=== PATIENT | male | born 1975 | race African-American/Black ===

== ENCOUNTER 2018-07-24 13:10 | Emergency (ER) | payer OTHER ==
[~2018-07-24 13:10] MED LIST: ISOVUE-370 76%-LOCM 1 ML ONE
[2018-07-24 13:40] LABS: #Basophils 0.1 thou/uL (0.0-0.2); #Lymphocytes 1.9 thou/uL (1.20-3.40); #Monocytes 0.5 thou/uL (0.11-0.59); #Neutrophils 3.6 thou/uL (1.40-6.50); %Basophils 1.7 % (0.0-1.0); %Eosinophils 0.8 % (0.0-10.0); %Lymphocytes 31.3 % (21.0-51.0); %Monocytes 7.3 % (0.0-10.0); %Neutrophils 58.8 % (42.0-75.0); Hemoglobin 16.2 g/dL (14.0-18.0); Mean Corpuscular HGB CONC 32.3 g/dL (32.0-36.0); Mean Corpuscular Hemoglobin 28.5 pg (27.0-31.0); Mean Corpuscular Volume 88.4 fL (78.0-98.0); Mean Platelet Volume 9.6 fL (7.4-10.4); Platelet Count 178 thou/uL (130-400); RBC Distribution Width 13.1 % (11.5-14.5); Red Blood Cell (RBC) Count 5.68 mill/uL (4.70-6.10); White Blood Cell (WBC) Count 6.1 thou/uL (4.8-10.8)
[2018-07-24 13:52] LABS: PTT 32.5 SEC (22.9-36.1); Prothrombin Time 13.3 SEC (12.0-14.7)
[2018-07-24 14:00] LABS: CKMB 1.1 ng/mL (0-6.6); Troponin I Less than 0.010 ng/mL (< 0.028)
[2018-07-24 14:03] LABS: ALT (SGPT) 14 U/L (8-55); AST (SGOT) 19 U/L (5-34); Acetaminophen Less than 6.0 mcg/mL (10.0-30.0); Albumin 4.4 g/dL (3.5-5.0); Alcohol Less than 10 mg/dL (Less than 10); Alkaline Phosphatase 62 U/L (40-150); Anion Gap 13 mmol/L (10-20); BUN (Urea Nitrogen) 10 mg/dL (8.9-20.6); Bilirubin, Total 0.8 mg/dL (0.2-1.2); Calc. Creatinine Clearance 0 mL/min (70-130); Calcium 9.2 mg/dL (7.8-10.44); Carbon Dioxide 21 mmol/L (22-29); Chloride 106 mmol/L (98-107); Estimated GFR-MDRD 87; Glucose 85 mg/dL (70-105); Potassium 4.3 mmol/L (3.5-5.1); Protein, Total 7.4 g/dL (6.0-8.3); Salicylate Less than 8.0 mg/dL (15.0-30.0); Sodium 136 mmol/L (136-145)
[2018-07-24 14:20] LABS: Bilirubin Negative (Negative); Blood, Urine Negative (Negative); Clarity CLEAR (Clear); Glucose, Urine (Dipstick) Negative (Negative); Leukocyte Negative (Negative); Nitrite Negative (Negative); Protein, Urine (Dipstick) Negative (Neg-Trace); Specific Gravity, Urine 1.035 (1.002-1.036); Urobilinogen 0.2 mg/dL (0.2-1.0); pH, Urine 6.5 (5.0-9.0)
[2018-07-24 14:31] LABS: Amphetamine Detected (NotDetected); Barbiturates Screen Not Detected (NotDetected); Benzodiazepine Screen Not Detected (NotDetected); Cocaine Metabolite Screen Not Detected (NotDetected); Medtox Control Line Valid? VALID (VALID); Medtox Reader # READER 4; Methadone Not Detected (NotDetected); Methamphetamine Detected (NotDetected); Opiate Screen Not Detected (NotDetected); Oxycodone Screen Not Detected (NotDetected); Phencyclidine (PCP) Not Detected (NotDetected); THC/Cannabinoid Screen Detected (NotDetected); Tricyclic Screen Not Detected (NotDetected)
[2018-07-24] MEDS ORDERED: diphenhydrAMINE 12.5 MG/5 ML UDCUP ONE (15:10)
[2018-07-24] MEDS ORDERED: Lorazepam 2 MG/ML VIAL ONE (15:10)
[2018-07-24] MEDS ORDERED: diphenhydrAMINE 50 MG/ML VIAL ONE (15:11)
--- NOTE | 2018-07-24 18:06 | CT ---
CT ANGIOGRAM BRAIN WITH IV CONTRAST AND 3D RECONSTRUCTIONS CT ANGIOGRAM NECK WITH IV CONTRAST AND 3D RECONSTRUCTIONS: DATE: 07/24/18. COMPARISON: Noncontrast CT head on 07/24/18. HISTORY: Altered mental status. FINDINGS: The aortic arch is normal in caliber. There is a common origin of the innominate artery and left com mon carotid artery which his a normal variant. The innominate artery and bilateral common carotid ar teries as well as left subclavian artery are patent. The right subclavian artery is partially obscur ed due to dense contrast in the right subclavian vein. The bilateral common carotid arteries as well as the bilateral internal and external carotid arteries are patent. There is minimal atherosclerotic plaque seen within the proximal left internal carotid artery. There is less than 50% maximal stenosis in the internal carotid arteries bilaterally accordi ng to NASCET criteria. There are patent and codominant bilateral vertebral arteries. The basilar artery is very small in ca liber but is patent. Bilateral posterior cerebral arteries are patent and there are patent bilateral posterior communicating arteries visualized. The distal bilateral internal carotid arteries, bilate ral middle cerebral arteries, as well as anterior cerebral arteries are patent. There is a patent an terior communicating artery visualized. No focal stenosis or branch occlusion is seen. There is tortuosity involving the proximal left internal carotid artery. Degenerative changes are seen in the spine at the C6-7 level with prominent posterior osteophyte form ation present. There is fusion of the C2 and C3 vertebral bodies, likely on a developmental basis. Mucous retention cyst is seen in the right maxillary antrum with mucosal thickening in the left maxil anshu antrum. Defect in the left medial orbital wall is likely developmental in origin versus remote injury. Visualized upper lung zones are clear. Calcified mediastinal lymph nodes are seen. The bilateral submandibular and parotid glands as well as the thyroid gland have a normal CT appearan ce. IMPRESSION: 1. Less than 50% maximal stenosis in the bilateral internal carotid arteries based on NASCET criteri a. 2. Patent bilateral vertebral arteries. 3. No focal stenosis or branch occlusion is seen involving the [place] or vertebrobasilar s ystem, and no aneurysm is identified within the limitations of the technique of this exam. 4. The above findings were discussed with Dr. Nelson in the emergency department on 07/04/18 at 1414 hours. CODE CR POS: [facility]
--- NOTE | 2018-07-24 18:06 | CT ---
NONCONTRAST CT HEAD: DATE: 07/24/18. HISTORY: Altered mental status, stroke alert. COMPARISON: 03/28/16. FINDINGS: There is no evidence of a hemorrhage, acute infarction, mass effect, or midline shift. Ventricular s ystem is normal in size, shape, and position. The maxillary antra are not visualized on this exam, a lthough there does appear to be a small defect in the posterior left medial orbital wall which may be developmental or related to remote injury. There has been no interval change from the prior exam. IMPRESSION: 1. No acute intracranial abnormality is demonstrated. 2. The above findings were discussed with Dr. Nelson in the emergency department on 07/24/18 at 133 6 hours. CODE CR POS: [facility]
== END 2018-07-24 15:46 | disposition home or self-care (01) ==
LOC: ERS 13:10
DX: R29.898 Other symptoms and signs involving the musculoskeletal system (principal); F19.10 Other psychoactive substance abuse, uncomplicated; I10 Essential (primary) hypertension; Z86.73 Personal history of transient ischemic attack (TIA), and cerebral infarction without residual deficits; F31.9 Bipolar disorder, unspecified; F41.9 Anxiety disorder, unspecified; F20.9 Schizophrenia, unspecified; F17.210 Nicotine dependence, cigarettes, uncomplicated; Z79.899 Other long term (current) drug therapy
CPT/HCPCS: 36416; 70450; 70496; 70498; 80053; 80306; 80307; 81003; 82140; 82550; 82553; 84484; 85025; 85610; 85730; 93005; 96374; 96375; J1200; J2060

== ENCOUNTER 2019-02-23 19:03 | Observation (INO) | payer OTHER ==
[2019-02-23] MEDS ORDERED: Aspirin Chewable 81 MG TAB ONE (19:12)
[2019-02-23] MEDS ORDERED: Nitroglycerin 2% Ointment 1 INCH/1 GM Packet ONE (19:12)
[2019-02-23] MEDS ORDERED: Acetaminophen 500 MG TAB ONE (19:12)
[2019-02-23 19:28] LABS: #Lymphocytes 0.5 thou/uL (1.20-3.40); #Monocytes 0.4 thou/uL (0.11-0.59); #Neutrophils 10.5 thou/uL (1.40-6.50); %Basophils 0.4 % (0.0-1.0); %Eosinophils 0.4 % (0.0-10.0); %Lymphocytes 4.4 % (21.0-51.0); %Monocytes 3.8 % (0.0-10.0); %Neutrophils 91.1 % (42.0-75.0); Hemoglobin 14.3 g/dL (14.0-18.0); Mean Corpuscular HGB CONC 31.6 g/dL (32.0-36.0); Mean Corpuscular Hemoglobin 27.6 pg (27.0-31.0); Mean Corpuscular Volume 87.4 fL (78.0-98.0); Mean Platelet Volume 9.1 fL (7.4-10.4); Platelet Count 140 thou/uL (130-400); RBC Distribution Width 12.7 % (11.5-14.5); Red Blood Cell (RBC) Count 5.16 mill/uL (4.70-6.10); White Blood Cell (WBC) Count 11.6 thou/uL (4.8-10.8)
--- NOTE | 2019-02-23 19:30 | RAD ---
Portable frontal chest radiograph: 02/23/2019 COMPARISON: 12/19/2015 HISTORY: Chest pain FINDINGS: Lungs are clear. Heart and mediastinal contours appear within normal limits. IMPRESSION: No acute findings.
[2019-02-23 19:44] LABS: ALT (SGPT) 9 U/L (8-55); AST (SGOT) 13 U/L (5-34); Albumin 4.1 g/dL (3.5-5.0); Alkaline Phosphatase 62 U/L (40-150); Anion Gap 12 mmol/L (10-20); BUN (Urea Nitrogen) 11 mg/dL (8.9-20.6); Bilirubin, Total 0.3 mg/dL (0.2-1.2); CK (CPK) 168 U/L (30-200); Calc. Creatinine Clearance 0 mL/min (70-130); Carbon Dioxide 22 mmol/L (22-29); Chloride 107 mmol/L (98-107); Estimated GFR-MDRD 77; Globulin 2.6 g/dL (2.4-3.5); Glucose 103 mg/dL (70-105); Lipase 15 U/L (8-78); Potassium 3.4 mmol/L (3.5-5.1); Protein, Total 6.7 g/dL (6.0-8.3); Sodium 138 mmol/L (136-145)
--- NOTE | 2019-02-23 20:20 | PDOC.FPRHP ---
- History of Present Illness Chief Complaint: chest pain History of Present Illness: 43 yo M with PMH CAD, HI s/p stent, CVA presents with chest pain. This morning he started "feeling bad" with weakness, lightheaded, diaphoresis, N/V, L sided stabbing chest pain radiating to back. Pain worse laying down. Also endorses difficulty breathing and wheezing. Nitro doesn't help and causes headache. Pain still 9/10. This pain similar to HI pain 5 months ago. He was hospitalized in [place] at that time and stents placed. He moves back and forth between here and [place]. No PCP. Gets medications from hospitals. Has been out of HCTZ, carvedilol, Plavix for months. ED Course: tylenol, nitro 1" paste, 1L, ASA - Allergies/Adverse Reactions Allergies Allergy/AdvReac Type Severity Reaction Status Date / Time No Known Allergies Allergy Verified 02/24/19 01:01 - Home Medications Medication Instructions Recorded Confirmed Type Aspirin [Ecotrin Low Strength] 81 mg PO DAILY 02/24/19 02/24/19 History Clopidogrel Bisulfate [Plavix] 75 mg PO BID 02/24/19 02/24/19 History Hydrochlorothiazide 12.5 mg PO BID 02/24/19 02/24/19 History cloNIDine [Catapres] 0.2 mg PO HS 02/24/19 02/24/19 History levETIRAcetam [Keppra] 250 mg PO BID 02/24/19 02/24/19 History - History PMHx: CAD with HI s/p stent 5 months ago, CVA 2016 without residual deficits, bipolar, schizoprenia, asthma, seizures PSHx: stents FHx: dad-stroke, HI, HLD, DM. mom-stroke Social: Current smoker, 23 pack years. Denies alcohol or drug use. - Review of Systems General: denies: fever/chills Eyes: denies: vision changes ENT: denies: nasal congestion Respiratory: reports: shortness of breath. denies: cough Cardiovascular: reports: chest pain. denies: palpitation, edema Gastrointestinal: reports: nausea, vomiting. denies: diarrhea, abdominal pain Genitourinary: denies: dysuria Skin: denies: rashes Musculoskeletal: denies: pain, swelling Neurological: reports: weakness. denies: numbness, seizure Psychological: reports: other (bipolar, schizophrenia) - Vital signs BP: 136/81, Pulse: 73, Resp: 18, Pain: 7, O2 sat: 96 on Room Air, T 98.7, Weight 98.7 - Physical Exam Constitutional: NAD HEENT: normocephalic and atraumatic, PERRLA, grossly normal vision, grossly normal hearing, MMM, oropharynx clear Neck: supple Heart: RRR, normal S1/S2, no murmurs/rubs/gallops, pulses present, no edema Lungs: other (expiratory wheeze) Abdomen: soft, non-tender, bowel sounds present Musculoskeletal: normal structure, normal tone Neurological: no focal deficit Skin: good turgor, capillary refill <2 seconds Heme/Lymphatic: no unusual bruising or bleeding Psychiatric: normal mood and affect FMR H&P: Results - Labs Result Diagrams: 02/23/19 19:19 02/23/19 19:17 Lab results: WBC 11.6 thou/uL (4.8-10.8) H 02/23/19 19:19 Hgb 14.3 g/dL (14.0-18.0) 02/23/19 19:19 Hct 45.1 % (42.0-52.0) 02/23/19 19:19 MCV 87.4 fL (78.0-98.0) 02/23/19 19:19 Plt Count 140 thou/uL (130-400) 02/23/19 19:19 Neutrophils % 91.1 % (42.0-75.0) H 02/23/19 19:19 Sodium 138 mmol/L (136-145) 02/23/19 19:17 Potassium 3.4 mmol/L (3.5-5.1) L 02/23/19 19:17 Chloride 107 mmol/L (98-107) 02/23/19 19:17 Carbon Dioxide 22 mmol/L (22-29) 02/23/19 19:17 BUN 11 mg/dL (8.9-20.6) 02/23/19 19:17 Creatinine 1.25 mg/dL (0.7-1.3) 02/23/19 19:17 Glucose 103 mg/dL (70-105) 02/23/19 19:17 Calcium 9.0 mg/dL (7.8-10.44) 02/23/19 19:17 Total Bilirubin 0.3 mg/dL (0.2-1.2) 02/23/19 19:17 AST 13 U/L (5-34) 02/23/19 19:17 ALT 9 U/L (8-55) 02/23/19 19:17 Alkaline Phosphatase 62 U/L (40-150) 02/23/19 19:17 Creatine Kinase 168 U/L (30-200) 02/23/19 19:17 B-Natriuretic Peptide 17.2 pg/mL (0-100) 02/23/19 19:17 Serum Total Protein 6.7 g/dL (6.0-8.3) 02/23/19 19:17 Albumin 4.1 g/dL (3.5-5.0) 02/23/19 19:17 Lipase 15 U/L (8-78) 02/23/19 19:17 FMR H&P: A/P - Plan Typical chest pain, ACS rule out - Heart score 5 - trop neg x1, continue to trend - EKG with t wave inversions - will request records from [place] and discuss case with cardiology in am - pending TSH, UDS CAD with HI s/p stent 5 months ago and history of CVA - continue home ASA 81 - out of plavix for months - not on statin, FLP pending HTN - restart home HCTZ - patient reported carvedilol rx but clonidine in med rec. Will monitor BP and decide need for second agent Seizure disorder - continue keppra, patient has been taking regularly Asthma - albuterol prn Bipolar and schizoprenia - does not take meds d/t sedation side effect Tobacco abuse - probation counselor cessation Diet: NPO after midnight Ppx: Lovenox Dispo: admit to telemetry for observation, expected stay <2 midnights PCP: none Case discussed with Dr. Alcocer FMR H&P: Upper Level - Pertinent history 43 yo AAM with known history of CAD with recent stent placement 5 months ago in [place] presents with L sided stabbing chest pain since 8 am this morning. Pain not associated with exertion but does not he feels worse when he lays down. Also associated with n/v and diaphoresis. - Pertinent findings VS, labs, imaging and EKG reviewed Gen: awake, alert, oriented, appears uncomfortable HEENT: NCAT, MMM, trachea midline, no JVD CV: RRR, no murmur noted, chest pain not reproducible RESP: Scattered expiratory wheezing ABD: soft, NTND, bowel sounds present EXT: no edema, pulses 2+ throughout - Plan Date/Time: 02/23/192018 43 yo AAM with known CAD presents with typical chest pain 1. Typical chest pain - HEART score 5 - No relief with nitro but accompanied by n/v/diaphoresis and similar pain to when he had HI - EKG with inferolateral t wave inversion but unknown baseline with recent h/o HI - trop neg x1, will trend - monitor on tele - FLP, TSH, UDS - likely needs moderate intensity statin - Cardiology consult in a.m. - will hold off on stress in setting of recent HI, stent placement and unknown acuity of t wave inversion 2. CAD with recent stent placement, h/o stroke - Has been out of Plavix for "a while" - Continue ASA, d/w cardiology indication for duration of Plavix - Unknown stent type, will request records 3. HTN - Home meds, hold B-moiz in case of possible stress tomorrow 4. Bipolar d/o, Schizophrenia - Does not take meds because they sedate him 5. Tobacco abuse - Counseled cessation, precontemplative Please see Dr. Ruiz's note for remainder of A/P I, Mirian Soto MD, PGY-3, have evaluated this patient and agree with findings/ plan as outlined by general internist and physician leader resident. Pertinent changes/additions are listed here.
[2019-02-23] MEDS ORDERED: Acetaminophen 325 MG TAB PO PRN (22:12)
[2019-02-23] MEDS ORDERED: Ondansetron PF 4 MG/2 ML Vial IVP PRN (22:15)
[2019-02-23] MEDS ORDERED: Nitroglycerin 0.4 MG TAB (25 Tab Bottle) PO PRN (22:19)
[2019-02-23 22:55] LABS: Troponin I Less than 0.010 ng/mL (< 0.028)
[2019-02-23] MEDS ORDERED: Morphine 4 MG/ML VIAL ONE (22:55)
[2019-02-23] MEDS ORDERED: Nicotine 14 MG PATCH TD SCH (23:00)
[2019-02-23] MEDS ORDERED: Enoxaparin Sodium 40 MG/0.4 ML SYRINGE SC SCH (23:00)
--- NOTE | 2019-02-23 23:22 | PDOC.EVN ---
Event Note - Event Note Event Note: Date/Time: 02/23/19 7689 I personally evaluated the patient and discussed the management with Dr. Ruiz I agree with the History, Examination, Assessment and Plan documented above with any addition or exceptions noted below - 43 yo male with h/o CAD s/p stent 11/2018 in [place], HTN, CVA, seizures, and asthma presented c/o chest pain on left sided. Described as stabbing with associated SOB. No diaphoresis, N/V. Ran out of his clopidigrel and BP meds several months ago. PMH/PSH/All/Meds/SH reviewed and agree with resident 's documentation. BP 136/81 P73 RR18 T98.7 96% RA Exam repeated by me and agree with resident's findings. Labs: WBC=11.6, H /H=14.3/45.1, Xyt=023, Dq=660, K=3.4, Hq=048, CO2=22, BUN/Cr=11/1.25, Ocij=530, AST/ALT=13/9, Trop I=0.011, EKG- NSR, Inferolateral T wave inversions; no ST changes, CXR-negative. A/P: 1) Chest pain - Place in obs; trend serial cardiac enzymes. Patient with multiple risk factors including recent stent placement- consider cardiology consult in AM. Plan to pbtain records from [place] if patient able to recall hospital where procedure was done. 2) Seizure - continue keppra, 3) HTN- continue to monitor and syart oral agents if needed.
[2019-02-24 01:08] VITALS: BMI 27.2
[2019-02-24 01:56] LABS: Troponin I Less than 0.010 ng/mL (< 0.028)
[2019-02-24 06:16] LABS: Anion Gap 13 mmol/L (10-20); BUN (Urea Nitrogen) 9 mg/dL (8.9-20.6); Calc. Creatinine Clearance 89 mL/min (70-130); Calcium 8.5 mg/dL (7.8-10.44); Carbon Dioxide 22 mmol/L (22-29); Chloride 109 mmol/L (98-107); Estimated GFR-MDRD 88; Glucose 86 mg/dL (70-105); Potassium 3.5 mmol/L (3.5-5.1); Sodium 140 mmol/L (136-145)
--- NOTE | 2019-02-24 06:52 | PDOC.FM ---
- Subjective Subjective: Chest pain still present, unchanged. Tele monitors unremarkable except for ST depressions present on admission. Pt endorses pain is worse with laying down, better with sitting up, worse with inspiration. - Objective MAR Reviewed: Yes Vital Signs & Weight: Vital Signs (12 hours) Temp Pulse Resp BP Pulse Ox 02/24/19 04:06 99.0 F 73 13 148/82 H 97 02/24/19 01:07 98.4 F 70 17 138/83 98 Weight Weight 72.03 kg I&O: 02/22/19 02/23/19 02/24/19 06:59 06:59 06:59 Intake Total 0 Output Total 0 Balance 0 Result Diagrams: 02/23/19 19:19 02/24/19 04:58 Phys Exam - Physical Examination Constitutional: NAD HEENT: PERRLA, moist MMs Respiratory: no wheezing, clear to auscultation bilateral Cardiovascular: RRR, no significant murmur Gastrointestinal: soft, non-tender Musculoskeletal: no edema Neurological: non-focal, moves all 4 limbs Dx/Plan (1) Atypical chest pain Code(s): R07.89 - OTHER CHEST PAIN Status: Acute (2) Hypertension Code(s): I10 - ESSENTIAL (PRIMARY) HYPERTENSION Status: Acute (3) Dyslipidemia Code(s): E78.5 - HYPERLIPIDEMIA, UNSPECIFIED Status: Acute (4) Tobacco abuse Code(s): Z72.0 - TOBACCO USE Status: Acute - Plan Plan: 43 yo M with recent OR with coronary stent placement 5 mos ago admitted for typical chest pain, ACS rule out. #Typical chest pain - HEART score 5 - EKG with inferolateral t wave inversions and ST depressions but unknown baseline with recent h/o OR - trop neg x3 - Nitro paste didn't help - UDS pending - Based on clinical exam, suspicion for pericarditis. Ordered ESR/CRP, will try one time dose of toradol - Will start on high intensity statin - Will consult cardiology in regards to duration of plavix, whether to undergo NST/cath with recent hx of stent placement 5 mos ago #CAD with recent stent placement, h/o stroke - Has been out of Plavix for "a while" - Continue ASA, consult cardiology in regards for duration of Plavix - Unknown stent type, records requested #HTN - Home meds, hold B-moiz in case of possible stress tomorrow # Bipolar d/o, Schizophrenia - Does not take meds because they sedate him - Stable, f/u outpt # Tobacco abuse - Counseled cessation, precontemplative stage #Seizure disorder -continue home keppra #Asthma -continue home meds dvt ppx: lovenox
[2019-02-24] MEDS: Ondansetron ODT 4 MG TAB PO PRN ×2 (07:51→12:45)
[2019-02-24] MEDS ORDERED: Albuterol Sulfate 2.5 mg/3 ml Neb NEB PRN (08:38)
[2019-02-24] MEDS ORDERED: Iopamidol 370 76% 100 ML VIAL ONE (08:40)
[2019-02-24] MEDS ORDERED: Ketorolac Tromethamine 30 MG/ML VIAL IVP SCH (08:45)
[2019-02-24] MEDS ORDERED: Hydrochlorothiazide 25 MG TAB PO SCH (09:00)
[2019-02-24] MEDS ORDERED: levETIRAcetam 500 MG TAB PO SCH (09:00)
[2019-02-24] MEDS ORDERED: Aspirin 81 mg Enteric Coated Tablet PO SCH (09:00)
[2019-02-24] MEDS ORDERED: Aspirin 325 MG TAB PO SCH (09:00)
[2019-02-24 09:06] LABS: #Eosinphils 0.2 thou/uL (0.0-0.7); #Lymphocytes 0.9 thou/uL (1.20-3.40); #Monocytes 0.6 thou/uL (0.11-0.59); #Neutrophils 4.5 thou/uL (1.40-6.50); %Basophils 0.5 % (0.0-1.0); %Eosinophils 3.1 % (0.0-10.0); %Lymphocytes 14.5 % (21.0-51.0); %Monocytes 9.6 % (0.0-10.0); %Neutrophils 72.4 % (42.0-75.0); Hemoglobin 13.4 g/dL (14.0-18.0); Mean Corpuscular HGB CONC 31.5 g/dL (32.0-36.0); Mean Corpuscular Hemoglobin 27.7 pg (27.0-31.0); Mean Platelet Volume 9.1 fL (7.4-10.4); Platelet Count 143 thou/uL (130-400); RBC Distribution Width 12.8 % (11.5-14.5); Red Blood Cell (RBC) Count 4.83 mill/uL (4.70-6.10); White Blood Cell (WBC) Count 6.2 thou/uL (4.8-10.8)
[2019-02-24] MEDS ORDERED: Heparin 10,000 UNITS/1 ML VIAL ONE (10:08)
[2019-02-24] MEDS ORDERED: Nitroglycerin 100MG/250ML BOT 250 ML ONE (10:09)
[2019-02-24 10:14] LABS: Amphetamine Not Detected (NotDetected); Barbiturates Screen Not Detected (NotDetected); Benzodiazepine Screen Not Detected (NotDetected); Cocaine Metabolite Screen Not Detected (NotDetected); Medtox Control Line Valid? VALID (VALID); Medtox Reader # READER 4; Methadone Not Detected (NotDetected); Methamphetamine Not Detected (NotDetected); Opiate Screen Detected (NotDetected); Oxycodone Screen Not Detected (NotDetected); Phencyclidine (PCP) Not Detected (NotDetected); THC/Cannabinoid Screen Detected (NotDetected); Tricyclic Screen Not Detected (NotDetected)
[2019-02-24] MEDS ORDERED: Communication Order-Pharmacy FS SCH (10:15)
[2019-02-24] MEDS ORDERED: Midazolam HCl 2 mg/2 ml Vial ONE (11:41)
[2019-02-24] MEDS ORDERED: Sodium Chloride 0.9% 200 ML IV PRN (11:57)
[2019-02-24] MEDS ORDERED: Nitroglycerin 0.4 MG TAB (25 Tab Bottle) SL PRN (11:57)
[2019-02-24] MEDS ORDERED: Acetaminophen/Codeine 30-300mg Tablet PO PRN ×2 (11:57)
--- NOTE | 2019-02-24 13:24 | PRG ---
DATE OF SERVICE: 02/24/2019 Mr. Santana is a 43-year-old black man, who had a stent placed for coronary artery disease several months ago in [place]. He presented to our ER with some left-sided stabbing-type chest pain. He had quit taking his hydrochlorothiazide, Coreg, and Plavix several months ago. In the event, we consulted Cardiology given his chest pain in the presence of prior history of CAD with stenting. They recommended cardiac catheterization. He will be taken for this procedure forthwith. On his labs, troponins x2 were less than 0.01. Job ID: [id number]
--- NOTE | 2019-02-24 13:28 | CON ---
DATE OF CONSULTATION: HISTORY OF PRESENT ILLNESS: The patient is a 43-year-old gentleman with a history of coronary artery disease, who presents with recurrent chest discomfort and diaphoresis. The patient states that about a year and a half ago, he presented with a myocardial infarction. He underwent PTCA and stent placement. The patient unfortunately has not come for further followup. The patient unfortunately has continued to smoke. He was in his usual state of health. When yesterday, he developed recurrent chest discomfort. He became markedly diaphoretic. The patient describes the discomfort as left sided. It does not radiate. PAST MEDICAL HISTORY: 1. Coronary artery disease. 2. CVA. 3. Bipolar disorder. 4. Hypertension. 5. Seizures. PAST SURGICAL HISTORY: None. MEDICATIONS: Include; 1. Keppra 250 b.i.d. 2. Clonidine 0.2 at bedtime. 3. Hydrochlorothiazide 12.5 b.i.d. 4. Aspirin 81 daily. 5. Plavix 75 daily. REVIEW OF SYSTEMS: Ten-point system, otherwise unremarkable. SOCIAL HISTORY: He smokes 1-1/2 pack per day. ALLERGIES: NO KNOWN DRUG ALLERGIES. PHYSICAL EXAMINATION: GENERAL: This is a well-developed gentleman, in no acute distress. VITAL SIGNS: Blood pressure 159/81. NECK: No jugular venous distention. LUNGS: Clear to auscultation. HEART: Regular rate and rhythm. Normal S1 and S2. No murmurs. ABDOMEN: Nondistended. EXTREMITIES: Show no edema. VASCULAR: Radial pulses are 2+. LABORATORY DATA: Sodium 140, potassium 3.5, chloride 109, bicarbonate 22, BUN 13, and creatinine was 1.1. Troponin less than 0.01. White blood cell count 6.2, hemoglobin 13.4, hematocrit 42.5, and platelets are 143. IMAGING DATA: His EKG revealed normal sinus rhythm with a T-wave abnormality suggestive of ischemia. IMPRESSION: 1. Unstable angina. 2. History of percutaneous transluminal coronary angioplasty and stent placement. 3. History of cerebrovascular accident. 4. Bipolar disorder. 5. Seizure disorder. 6. Asthma. PLAN: This gentleman presents with unstable angina. From a cardiac standpoint , I have recommended that he proceed with cardiac catheterization to evaluate the extent of his coronary artery disease . The life threatening consequences of his continued noncompliance as well as use of tobacco abuse have been explained to the patient.I plan to proceed with cardiac catheterization. Job ID: [id number] MTDD
[2019-02-24 16:01] VITALS: BP 176/98; TEMP 98.6
[2019-02-24] MEDS ORDERED: cloNIDine 0.2 MG TAB PO SCH (21:00)
[2019-02-24] MEDS ORDERED: Atorvastatin Calcium 40 MG TAB PO SCH (21:00)
--- NOTE | 2019-02-27 11:53 | DIS ---
DATE OF ADMISSION: 02/23/2019 DATE OF DISCHARGE: 02/24/2019 ADMITTING ATTENDING: Winnie Alcocer MD. DISCHARGE ATTENDING: Corey Gr MD CONSULTS: Dr. Pryor, Cardiology. PROCEDURES: Cardiac catheterization: Report is pending. However, Dr. Pryor said cardiac cath was clean with no visualization of stent. IMAGING DATA: Chest x-ray, no acute findings. PRIMARY DIAGNOSIS: Atypical chest pain, likely noncardiac related, unknown etiology, but most likely musculoskeletal. SECONDARY DIAGNOSES: 1. History of bipolar disorder. 2. Schizophrenia. 3. Asthma. 4. Reported history of myocardial infarction, status post stent placement. 5. Seizures. 6. Hypertension. 7. History of cerebrovascular accident. DISCHARGE MEDICATIONS: 1. Clonidine 0.2 mg p.o. at bedtime. 2. Plavix 75 mg p.o. b.i.d. 3. Keppra 250 mg p.o. b.i.d. 4. Hydrochlorothiazide 12.5 mg p.o. b.i.d. 5. Aspirin 81 mg p.o. daily. 6. Atorvastatin 40 mg p.o. at bedtime. DISCONTINUED MEDICATIONS: None. HISTORY OF PRESENT ILLNESS/HOSPITAL COURSE: Mr. Santana is a 43-year-old male with past medical history of CAD, GA, status post stent x1, and CVA, who presented with atypical chest pain. He had not been taking plavix nor his antihypertensive medications. With a HEART score >4 and chest pain that felt similar to his last GA, he was admitted for ACS rule out. In the ED, he was hemodynamically stable aside but had chest pain which was not relieved with nitroglycerin paste nor sublingual nitroglycerin. Cardiac workup wholly negative including normal chest x-ray and cardiac enzymes. EKG did show some inferolateral T-wave inversions and ST depressions; however, we had no prior EKGs to compare this to, as these may have been chronic findings due to his recent of GA. Cardiology was consulted and he underwent cardiac catheterization. Surprisingly , there was no visualization of stent. It was discovered that after receiving outside records, there was no mention of stent placement. It is unsure whether or not the patient actually had stent placed despite the fact he reported it. It could be that he has been on the Plavix and aspirin due to his history of CVA. Otherwise, the patient is a poor historian and unsure whether or not his story is quite reliable. By the time the patient was discharged, chest pain had resolved. He was sent home with instructions to follow up and establish care with our clinic. DISPOSITION: Stable. DISCHARGE INSTRUCTIONS: 1. Location: Home. 2. Diet: Heart healthy. 3. Activity: As tolerated. 4. Followup: Please follow up at [facility] to establish care. We are very happy to see you. Job ID: [id number] [facility]ma
== END 2019-02-24 17:52 | disposition home or self-care (01) ==
LOC: ERS 19:03 → ERHOLD 19:56 → 2SW 02-24 00:59
PROVIDERS: ADMIT Family Medicine; ATTEND Family Medicine
PROC: 4A023N7 Measurement of Cardiac Sampling and Pressure, Left Heart, Percutaneous Approach (ICD-10-PCS; principal; 2019-02-24)
PROC: B2111ZZ Fluoroscopy of Multiple Coronary Arteries using Low Osmolar Contrast (ICD-10-PCS; 2019-02-24)
DX: R07.89 Other chest pain (principal); I25.10 Atherosclerotic heart disease of native coronary artery without angina pectoris; I10 Essential (primary) hypertension; I25.2 Old myocardial infarction; F20.9 Schizophrenia, unspecified; F31.9 Bipolar disorder, unspecified; J45.909 Unspecified asthma, uncomplicated; F17.210 Nicotine dependence, cigarettes, uncomplicated; G40.909 Epilepsy, unspecified, not intractable, without status epilepticus; Z95.5 Presence of coronary angioplasty implant and graft; Z86.73 Personal history of transient ischemic attack (TIA), and cerebral infarction without residual deficits; Z79.02 Long term (current) use of antithrombotics/antiplatelets; Z79.82 Long term (current) use of aspirin; Z79.899 Other long term (current) drug therapy
CPT/HCPCS: 36415; 71045; 80048; 80053; 80061; 80306; 82550; 83690; 83880; 84443; 84484; 85025; 85379; 85652; 86140; 93005; 93458; 94760; 96361; 96372; 96374; 96375; 99152; C1769; G0378; J1644; J1650; J1885; J2250; J2270; Q0162; Q9967

== ENCOUNTER 2019-04-24 11:02 | Observation (INO) | payer OTHER ==
[2019-04-24 11:30] LABS: #Basophils 0.1 thou/uL (0.0-0.2); #Eosinphils 0.1 thou/uL (0.0-0.7); #Lymphocytes 1.5 thou/uL (1.20-3.40); #Monocytes 0.4 thou/uL (0.11-0.59); #Neutrophils 3.5 thou/uL (1.40-6.50); %Basophils 1.6 % (0.0-1.0); %Eosinophils 1.1 % (0.0-10.0); %Lymphocytes 26.5 % (21.0-51.0); %Monocytes 6.8 % (0.0-10.0); Hemoglobin 14.7 g/dL (14.0-18.0); Mean Corpuscular HGB CONC 31.9 g/dL (32.0-36.0); Mean Corpuscular Volume 87.7 fL (78.0-98.0); Mean Platelet Volume 8.8 fL (7.4-10.4); Platelet Count 165 thou/uL (130-400); RBC Distribution Width 13.1 % (11.5-14.5); Red Blood Cell (RBC) Count 5.25 mill/uL (4.70-6.10); White Blood Cell (WBC) Count 5.5 thou/uL (4.8-10.8)
--- NOTE | 2019-04-24 11:42 | RAD ---
EXAM: CHEST ONE VIEW HISTORY: Chest pain with elevated blood pressure. COMPARISON: 02/23/2019 FINDINGS: The cardiac silhouette and pulmonary vasculature is within normal limits. The lungs are clear. The os seous structures are intact. No interval change. IMPRESSION: No acute cardiopulmonary process.
[2019-04-24 11:54] LABS: ALT (SGPT) 14 U/L (8-55); AST (SGOT) 19 U/L (5-34); Albumin 4.4 g/dL (3.5-5.0); Alkaline Phosphatase 57 U/L (40-150); Anion Gap 14 mmol/L (10-20); BUN (Urea Nitrogen) 9 mg/dL (8.9-20.6); Bilirubin, Total 0.5 mg/dL (0.2-1.2); Calc. Creatinine Clearance 0 mL/min (70-130); Calcium 9.2 mg/dL (7.8-10.44); Carbon Dioxide 22 mmol/L (22-29); Chloride 108 mmol/L (98-107); Estimated GFR-MDRD 81; Globulin 2.7 g/dL (2.4-3.5); Glucose 93 mg/dL (70-105); Protein, Total 7.1 g/dL (6.0-8.3); Sodium 140 mmol/L (136-145)
[2019-04-24] MEDS ORDERED: Nitroglycerin 2% Ointment 1 INCH/1 GM Packet ONE (12:32)
[2019-04-24] MEDS ORDERED: Aspirin Chewable 81 MG TAB ONE (12:32)
[2019-04-24] MEDS ORDERED: Acetaminophen 325 MG TAB PO PRN (13:44)
[2019-04-24] MEDS ORDERED: Ondansetron PF 4 MG/2 ML Vial IVP PRN (13:44)
[2019-04-24] MEDS ORDERED: Ondansetron ODT 4 MG TAB PO PRN (13:44)
[2019-04-24] MEDS ORDERED: hydrALAZINE 20 MG/ML VIAL SLOW IVP PRN (14:17)
[2019-04-24 14:31] LABS: Troponin I Less than 0.010 ng/mL (< 0.028)
[2019-04-24 15:00] LABS: Bilirubin Negative (Negative); Blood, Urine Negative (Negative); Clarity CLOUDY (Clear); Glucose, Urine (Dipstick) Negative (Negative); Leukocyte Small (Negative); Nitrite Negative (Negative); Protein, Urine (Dipstick) Negative (Neg-Trace); Specific Gravity, Urine 1.021 (1.002-1.036)
[2019-04-24 15:02] LABS: Bacteria/HPF None Seen HPF (None Seen); Hyaline Casts/LPF 7-10 HYALINE CAST LPF (0-3 Hyaline); RBC/HPF 0-3 HPF (0-3)
[2019-04-24 15:10] VITALS: BMI 25.4
[2019-04-24 16:01] LABS: Amphetamine Not Detected (NotDetected); Barbiturates Screen Not Detected (NotDetected); Benzodiazepine Screen Not Detected (NotDetected); Cocaine Metabolite Screen Not Detected (NotDetected); Medtox Control Line Valid? VALID (VALID); Medtox Reader # READER 4; Methadone Not Detected (NotDetected); Methamphetamine Not Detected (NotDetected); Opiate Screen Not Detected (NotDetected); Oxycodone Screen Not Detected (NotDetected); Phencyclidine (PCP) Not Detected (NotDetected); THC/Cannabinoid Screen Detected (NotDetected); Tricyclic Screen Not Detected (NotDetected)
[2019-04-24 18:05] LABS: Troponin I 0.013 ng/mL (< 0.028)
--- NOTE | 2019-04-24 20:09 | HP ---
PRIMARY CARE PHYSICIAN: None. CHIEF COMPLAINT: Chest pain. HISTORY OF PRESENT ILLNESS: Mr. Santana is a 43-year-old male with a past medical history of coronary artery disease, hypertension, bipolar disorder, schizophrenia, asthma, and seizures, who had presented to [facility] earlier today after he experienced left-sided chest pain and shortness of breath, lightheadedness and diaphoresis since yesterday. He states that the pain is improved today. However, he had been worried about his heart. Therefore, he had been wanting to get checked out to rule out any heart attack. He states symptoms similar to what he experienced roughly 2 months ago, the patient was admitted under observation for chest pain rule out back in January of 2019, during the hospital course serial troponins were found to be negative and he underwent a cardiac catheterization with Dr. Pryor, which was found to be normal and he was noted to have patent coronary arteries, he then was later discharged with a diagnosis of noncardiac chest pain and was told to follow up with a PCP. However, the patient states that he was not able to follow up at that time, he states over the last 2 months that the pain resolved, however, seemed to return yesterday after he had a family argument. He had been noted to have an elevated blood pressure upon arrival, which had improved with the use of nitroglycerin. Currently, he is asymptomatic, but with a blood pressure of 159/110, pulse 66, respirations 16, temperature 98.4, and O2 saturation 100% on room air. His EKG remains unchanged from prior, and his initial troponin was found to be less than 0.010. It was at that time, the patient be admitted under observation for further workup and management of his symptoms. REVIEW OF SYSTEMS: All other systems reviewed and found to be negative unless mentioned in the HPI. PAST MEDICAL HISTORY: Coronary artery disease, CVA in 2017 without residual deficits, bipolar disorder, schizophrenia, asthma, and seizure disorder. PAST SURGICAL HISTORY: Cardiac catheterization. PSYCHIATRIC HISTORY: History of bipolar and schizophrenia along with seizure disorder. SOCIAL HISTORY: The patient reports is a current tobacco smoker, which he smokes about a half pack per day and he states that he has an occasional use of marijuana, however, denies any alcohol use. ALLERGIES: NO KNOWN DRUG ALLERGIES. CURRENT HOME MEDICATIONS: 1. Aspirin 81 mg daily. 2. Clopidogrel 75 mg p.o. b.i.d. 3. Hydrochlorothiazide 12.5 mg p.o. b.i.d. 4. Clonidine 0.2 mg p.o. at bedtime. 5. Keppra 250 mg p.o. b.i.d. PHYSICAL EXAMINATION: VITAL SIGNS: Blood pressure 159/110, pulse 66, respirations 16, temperature 98.4 degrees Fahrenheit, and O2 saturations 100% on room air. GENERAL: The patient is awake, alert, and oriented x3. He is currently lying comfortably in bed with his family at bedside and appears in no acute distress at this time. HEENT: Atraumatic and normocephalic. Pupils are round and reactive to light. Extraocular muscles intact. Moist mucous membranes noted. CARDIOVASCULAR: Positive S1 and S2. Regular rate and rhythm. No murmur auscultated. RESPIRATORY: Clear to auscultation bilaterally. No wheezes, rales, or rhonchi. ABDOMEN: Soft and nontender. Bowel sounds present. MUSCULOSKELETAL: Strength 5+ bilaterally, upper and lower extremities. Moves all extremities equal. Pedal and radial pulses 2+ bilaterally. No edema noted. NEUROLOGIC: Cranial nerves 2 through 12 grossly intact. No focal deficits noted. Speech intact and normal. Gait not assessed. SKIN: Warm, dry, and intact. No rashes. No ulceration noted. PSYCHIATRIC: Good mood and affect. LABORATORY DATA: WBC 5.5, RBC 5.25, hemoglobin 14.7, and platelet 165. Sodium 140, potassium 4.0, carbon dioxide 22, anion gap 14, BUN 9, creatinine 1.20, estimated GFR 81, glucose 93, AST 19, and ALT 14. Troponin less than 0.010. DIAGNOSTIC IMAGING: Portable chest x-ray showed no acute cardiopulmonary process. ASSESSMENT/PLAN: 1. Chest pain, the patient's portable chest x-ray was unremarkable and his first initial troponin was found to be less than 0.010. Trend troponins. The patient had a normal heart catheterization [address] Pryor. EKG remains unchanged. The patient remains asymptomatic at this time. 2. Hypertension. The patient will be resumed on his home regimen, we will add p.r.n. antihypertensives including IV hydralazine as needed for an elevated blood pressure with systolic greater than 170 or diastolic greater than 100. 3. Symptomatic shortness of breath. The patient currently asymptomatic at this time. However, due to his other complaint of chest pain, we will obtain a D-dimer to rule out pulmonary embolism and especially with his current history of tobacco and marijuana use. 4. History of bipolar disorder. 5. History of seizure disorder. Continue home Keppra. 6. Tobacco abuse. 7. Marijuana use. We will obtain urine drug screen for further evaluation, and it was strongly recommended that the patient follows smoking cessation. 8. Deep venous thrombosis and gastrointestinal prophylaxis. CODE STATUS: Full code. DISPOSITION: Pending further workup and clinical findings. Job ID: [id number]
[2019-04-24] MEDS: Famotidine 20 MG TAB PO SCH (20:15)
[2019-04-24] MEDS: levETIRAcetam 500 MG TAB PO SCH (20:15)
[2019-04-24] MEDS: Clopidogrel Bisulfate 75 MG TAB PO SCH (20:15)
[2019-04-24] MEDS ORDERED: Atorvastatin Calcium 40 MG TAB PO SCH (21:00)
[2019-04-24] MEDS ORDERED: cloNIDine 0.2 MG TAB PO SCH (21:00)
[2019-04-24] MEDS ORDERED: Nicotine 14 MG PATCH TD SCH (21:00)
[2019-04-25 05:30] LABS: #Basophils 0.1 thou/uL (0.0-0.2); #Eosinphils 0.1 thou/uL (0.0-0.7); #Lymphocytes 1.9 thou/uL (1.20-3.40); #Monocytes 0.3 thou/uL (0.11-0.59); #Neutrophils 3.3 thou/uL (1.40-6.50); %Basophils 1.1 % (0.0-1.0); %Eosinophils 1.7 % (0.0-10.0); %Lymphocytes 33.3 % (21.0-51.0); %Monocytes 5.6 % (0.0-10.0); %Neutrophils 58.4 % (42.0-75.0); Hemoglobin 13.7 g/dL (14.0-18.0); Mean Corpuscular HGB CONC 31.8 g/dL (32.0-36.0); Mean Corpuscular Hemoglobin 28.3 pg (27.0-31.0); Mean Corpuscular Volume 88.9 fL (78.0-98.0); Platelet Count 146 thou/uL (130-400); Red Blood Cell (RBC) Count 4.85 mill/uL (4.70-6.10); White Blood Cell (WBC) Count 5.6 thou/uL (4.8-10.8)
[2019-04-25 05:54] LABS: Anion Gap 11 mmol/L (10-20); BUN (Urea Nitrogen) 12 mg/dL (8.9-20.6); Calc. Creatinine Clearance 80 mL/min (70-130); Calcium 9.2 mg/dL (7.8-10.44); Carbon Dioxide 23 mmol/L (22-29); Chloride 106 mmol/L (98-107); Cholesterol 135 mg/dl (< 200 Desired); Estimated GFR-MDRD 82; Glucose 91 mg/dL (70-105); HDL Cholesterol 45 mg/dL (>60 Neg Risk); LDL Cholesterol, Calculated 80 mg/dL; Potassium 3.9 mmol/L (3.5-5.1); Sodium 136 mmol/L (136-145); Triglycerides 48 mg/dL (Less than 150)
[2019-04-25] MEDS ORDERED: Enoxaparin Sodium 40 MG/0.4 ML SYRINGE SC SCH (09:00)
[2019-04-25] MEDS ORDERED: Aspirin 81 mg Enteric Coated Tablet PO SCH (09:00)
[2019-04-25] MEDS ORDERED: Hydrochlorothiazide 25 MG TAB PO SCH (09:00)
[2019-04-25] MEDS ORDERED: Amlodipine 5 MG TAB PO SCH (09:00)
[2019-04-25] MEDS: Clopidogrel Bisulfate 75 MG TAB PO SCH (09:01)
[2019-04-25] MEDS: levETIRAcetam 500 MG TAB PO SCH (09:01)
[2019-04-25] MEDS: Famotidine 20 MG TAB PO SCH (09:02)
[2019-04-25 12:27] VITALS: BP 129/84; TEMP 98
--- NOTE | 2019-04-28 09:08 | EKG ---
Test Reason : CHEST PAIN Blood Pressure : / mmHG Vent. Rate : 071 BPM Atrial Rate : 071 BPM P-R Int : 154 ms QRS Dur : 094 ms QT Int : 404 ms P-R-T Axes : -02 046 -08 degrees QTc Int : 439 ms Normal sinus rhythm Voltage criteria for left ventricular hypertrophy ST elevation, consider early repolarization Abnormal ECG Old T wave inversion II,III,aVF Confirmed by SOURAV GOLDSMITH DO ([id number]), photography editor ANA LOGAN ([id number]) on 04/28/2019 9:08:01 AM Referred By: AGUS Confirmed By:SOURAV GOLDSMITH DO
== END 2019-04-25 12:54 | disposition home or self-care (01) ==
LOC: ERS 11:02 → 2SW 15:06
PROVIDERS: ADMIT Internal Medicine; ATTEND Internal Medicine
DX: R07.9 Chest pain, unspecified (principal); I25.10 Atherosclerotic heart disease of native coronary artery without angina pectoris; I10 Essential (primary) hypertension; F31.9 Bipolar disorder, unspecified; F20.9 Schizophrenia, unspecified; J45.909 Unspecified asthma, uncomplicated; G40.909 Epilepsy, unspecified, not intractable, without status epilepticus; F17.210 Nicotine dependence, cigarettes, uncomplicated; Z86.73 Personal history of transient ischemic attack (TIA), and cerebral infarction without residual deficits; Z79.02 Long term (current) use of antithrombotics/antiplatelets; Z79.82 Long term (current) use of aspirin; Z79.899 Other long term (current) drug therapy; Z98.890 Other specified postprocedural states
CPT/HCPCS: 36415; 71045; 80048; 80053; 80061; 80306; 81003; 81015; 84443; 84484; 85025; 85379; 90471; 90732; 93005; 96372; 96374; G0009; G0378; J0360; J1650

== ENCOUNTER 2019-07-11 18:43 | Emergency (ER) | payer OTHER ==
[2019-07-11] MEDS ORDERED: Dexamethasone 10 MG/ML VIAL ONE (20:30)
[2019-07-11] MEDS ORDERED: diphenhydrAMINE 50 MG CAP ONE (20:30)
[2019-07-11] MEDS ORDERED: Famotidine/PF 20 mg/2ml Vial ONE (20:30)
[2019-07-11] MEDS ORDERED: Famotidine 20 MG TAB ONE (20:31)
== END 2019-07-11 20:37 | disposition home or self-care (01) ==
LOC: ERS 18:43
DX: L29.9 Pruritus, unspecified (principal); I10 Essential (primary) hypertension; F17.210 Nicotine dependence, cigarettes, uncomplicated; Z79.899 Other long term (current) drug therapy
CPT/HCPCS: 99282; J1100; Q0163; S0028

== ENCOUNTER 2019-07-13 09:35 | Emergency (ER) | payer OTHER ==
[2019-07-13] MEDS ORDERED: hydrOXYzine 25 MG TAB ONE ×2 (10:37→10:41)
== END 2019-07-13 10:55 | disposition home or self-care (01) ==
LOC: ERS 09:35
DX: L29.9 Pruritus, unspecified (principal); I10 Essential (primary) hypertension; F41.9 Anxiety disorder, unspecified; F31.9 Bipolar disorder, unspecified; F20.9 Schizophrenia, unspecified; F17.210 Nicotine dependence, cigarettes, uncomplicated; Z79.899 Other long term (current) drug therapy; Z79.82 Long term (current) use of aspirin
CPT/HCPCS: 99281

== ENCOUNTER 2020-01-11 18:00 | Emergency (ER) | payer OTHER ==
[2020-01-11 18:34] LABS: Hemoglobin 15.3 g/dL (14.0-18.0); Mean Corpuscular HGB CONC 32.4 g/dL (32.0-36.0); Mean Corpuscular Hemoglobin 28.2 pg (27.0-31.0); Mean Platelet Volume 8.9 fL (7.4-10.4); Platelet Count 173 thou/uL (130-400); RBC Distribution Width 12.9 % (11.5-14.5); Red Blood Cell (RBC) Count 5.44 mill/uL (4.70-6.10)
--- NOTE | 2020-01-11 18:37 | RAD ---
PORTABLE CHEST: 01/11/20 HISTORY: Left sided chest pain, cough and shortness of breath. COMPARISON: 04/24/19 exam. Heart size and mediastinum are within normal limits. The lungs are clear of infiltrates. No significa nt bony findings. IMPRESSION: No active intrathoracic disease. POS: [facility]
[2020-01-11 18:52] LABS: ALT (SGPT) 17 U/L (8-55); AST (SGOT) 17 U/L (5-34); Albumin 4.4 g/dL (3.5-5.0); Alkaline Phosphatase 70 U/L (40-110); Anion Gap 11 mmol/L (10-20); BUN (Urea Nitrogen) 9 mg/dL (8.9-20.6); Bilirubin, Total 0.5 mg/dL (0.2-1.2); CK (CPK) 157 U/L (30-200); Calc. Creatinine Clearance 0 mL/min (70-130); Calcium 9.3 mg/dL (7.8-10.44); Carbon Dioxide 30 mmol/L (22-29); Chloride 100 mmol/L (98-107); Estimated GFR-MDRD 60; Globulin 2.8 g/dL (2.4-3.5); Glucose 96 mg/dL (70-105); Potassium 3.5 mmol/L (3.5-5.1); Protein, Total 7.2 g/dL (6.0-8.3); Sodium 137 mmol/L (136-145)
[2020-01-11 18:58] LABS: Band 11 % (5-11); Eosinophils 1 % (0-10); Lymphocytes 3 % (21-51); MDiff Complete? YES; Monocytes 2 % (0-10); Neutrophil 80 % (42-75); Platelet Morphology Comment Appears Adequate; RBC Morphology Normal; Reactive Lymphocytes 2 % (0-10)
== END 2020-01-11 20:51 | disposition left against medical advice (07) ==
LOC: ERS 18:00
DX: Z53.21 Procedure and treatment not carried out due to patient leaving prior to being seen by health care provider (principal)
CPT/HCPCS: 36415; 71045; 80053; 82550; 84484; 85025; 87804; 93005

== ENCOUNTER 2020-09-08 20:08 | Observation (INO) | payer OTHER ==
[2020-09-08 20:40] LABS: #Basophils 0.1 thou/uL (0.0-0.2); #Lymphocytes 2.2 thou/uL (1.20-3.40); #Monocytes 0.6 thou/uL (0.11-0.59); %Basophils 1.3 % (0.0-1.0); %Eosinophils 0.4 % (0.0-10.0); %Lymphocytes 24.4 % (21.0-51.0); %Monocytes 6.2 % (0.0-10.0); %Neutrophils 67.6 % (42.0-75.0); Hemoglobin 15.8 g/dL (14.0-18.0); Mean Corpuscular HGB CONC 33.4 g/dL (32.0-36.0); Mean Corpuscular Hemoglobin 29.5 pg (27.0-31.0); Mean Corpuscular Volume 88.3 fL (78.0-98.0); Mean Platelet Volume 9.1 fL (7.4-10.4); Platelet Count 174 thou/uL (130-400); RBC Distribution Width 12.8 % (11.5-14.5); Red Blood Cell (RBC) Count 5.37 mill/uL (4.70-6.10); White Blood Cell (WBC) Count 8.8 thou/uL (4.8-10.8)
--- NOTE | 2020-09-08 20:59 | RAD ---
RADIOGRAPH CHEST 2 VIEWS: DATE: 09-08-2020 TIME: 8:27 P.M. HISTORY: 45-year-old male with chest pain. FINDINGS: The lungs are clear. The cardiomediastinal silhouette and hilar shadows are normal. There is no ple ural effusion. The osseous structures appear normal. There is no pneumothorax. IMPRESSION: Normal. jn POS: [facility]
[2020-09-08 21:00] LABS: ALT (SGPT) 12 U/L (8-55); AST (SGOT) 14 U/L (5-34); Albumin 4.3 g/dL (3.5-5.0); Alkaline Phosphatase 66 U/L (40-110); Anion Gap 15 mmol/L (10-20); BUN (Urea Nitrogen) 11 mg/dL (8.9-20.6); Bilirubin, Total 0.4 mg/dL (0.2-1.2); Calc. Creatinine Clearance 0 mL/min (70-130); Calcium 9.4 mg/dL (7.8-10.44); Carbon Dioxide 24 mmol/L (22-29); Chloride 108 mmol/L (98-107); Estimated GFR-MDRD 64; Globulin 2.5 g/dL (2.4-3.5); Glucose 104 mg/dL (70-105); Potassium 3.9 mmol/L (3.5-5.1); Protein, Total 6.8 g/dL (6.0-8.3); Sodium 143 mmol/L (136-145)
[2020-09-08] MEDS ORDERED: Aspirin Chewable 81 MG TAB ONE (21:13)
[2020-09-08] MEDS ORDERED: Acetaminophen 500 MG TAB ONE (21:13)
[2020-09-08] MEDS ORDERED: diphenhydrAMINE 50 MG/ML VIAL ONE (21:13)
[2020-09-08] MEDS ORDERED: Metoclopramide 10 MG/10 ML UDCUP ONE (21:13)
[2020-09-08] MEDS ORDERED: Metoclopramide HCl 10 MG/2 ML VIAL ONE (21:14)
--- NOTE | 2020-09-08 21:54 | CT ---
CT BRAIN WITHOUT CONTRAST: HISTORY: Headache, hypertension COMPARISON: 01/03/2020 FINDINGS: No evidence of acute infarct, hemorrhage, midline shift or abnormal extra-axial fluid collections is seen. The ventricular size is appropriate and the basilar cisterns are patent. The bony calvarium is intact. The visualized paranasal sinuses and mastoid air cells are well aerated. IMPRESSION: No CT evidence of acute intracranial process.
[2020-09-09 00:12] LABS: Troponin I 0.018 ng/mL (< 0.028)
[2020-09-09] MEDS ORDERED: hydrALAZINE 20 MG/ML VIAL SLOW IVP PRN (02:16)
[2020-09-09] MEDS ORDERED: Nitroglycerin 0.4 MG TAB (25 Tab Bottle) SL PRN (02:16)
[2020-09-09 03:12] LABS: Troponin I 0.013 ng/mL (< 0.028)
--- NOTE | 2020-09-09 03:58 | HP ---
PCP: None. CHIEF COMPLAINT: Headache and chest pain. HISTORY OF PRESENT ILLNESS: The patient is a 45-year-old male with past medical history significant for hypertension, CVA, and LA. He presents to the ER today after having complaints of chest pain and a headache. He states that the chest pain and headache started while he was working on his car outside. The chest pain did not appear to be radiating. He had no nausea with it. He is unsure whether he was diaphoretic at this time due to the chest pain as he was already sweating from working outside. The patient does state that he was short of breath. He also reports a generalized headache at that time. He tried to lay down to see if his symptoms would resolve, but they did not. He took some [id number] medications, which he does not recall the name of which did not help. The patient does state that he gets this headache and chest pain when his blood pressure goes up. He does claim to be compliant with his medications; however, he does not have a current PCP. The patient also does claim that the chest pain will come and go on its own even while at rest and then nothing relieves it. It will just resolve on its own. He also states that when lying flat at night he will often wake up gasping for breath but he denies snoring. Today in the ER, they completed the EKG, chest x-ray, brain CT, lab work, and administered medications. Today, they gave him Tylenol 1000 mg oral, aspirin 324 mg, Reglan 10 mg IV, 1 L of normal saline, and Benadryl 25 mg IV. His vital signs initially upon arrival were 143/105, pulse 68, respiratory rate 17, temperature 97.9, pain 9, O2 saturation 100% on room air. His current vitals in the ER are blood pressure 147/95, pulse 68, respiratory rate 12, pain 0, O2 saturation 100% on room air. PAST MEDICAL HISTORY: The patient states his only past medical history is the hypertension, LA, and CVA. In his chart, it is also reported that he has a history of seizures, asthma, anxiety, bipolar, depression, and schizophrenia, which patient did not state. PAST SURGICAL HISTORY: Cardiac stent placement through the right groin. FAMILY HISTORY: No known family history. REVIEW OF SYSTEMS: All other review of systems negative unless noted in HPI. PHYSICAL EXAMINATION: GENERAL: No acute distress. The patient was sleeping upon entry room. HEENT: Head; atraumatic, normocephalic. Eyes; PERRLA. Extraocular muscles intact. NECK: Normal range of motion. Trachea midline. RESPIRATORY: Clear to auscultation bilaterally. No rhonchi, no wheezes, no rales. CARDIOVASCULAR: Regular rate and rhythm. No murmurs, no rubs. Pain to chest upon palpation. ABDOMEN: Soft. No distention. No guarding. Normal bowel sounds. EXTREMITIES: No edema. No cyanosis. No clubbing. PSYCH: Normal affect. Normal behavior. LABS AND IMAGING: Heart rate 68, normal sinus rhythm, LVH. This was compared to the patient's prior EKG in December of 2019, very similar morphology. CT of the brain without contrast showed no CT evidence of acute intracranial process. Chest x- ray showed that the lungs are clear. Cardiomediastinal silhouette and hilar shadows are normal. No pleural effusion. No pneumothorax. Normal x-ray. Initial troponin negative. Sodium 143, potassium 3.9, creatinine 1.45, GFR 64. WBCs 8.8, hemoglobin 15.8, hematocrit 47.4. IMPRESSION AND PLAN: Chest pain, rule out myocardial infarction. Continue to trend troponins and monitor patient on telemetry throughout the night. After discussing the patient with Dr. Jack, it was decided to obtain a cardiology consult. This patient is a poor historian. He states he has a stent in the past, but he is not on any medications currently for this and he is unable to state when the particular stent was placed. He also states that he had a heart catheterization and stress possibly within the past year, but last documented was well over a year ago. Continue patient on his home medications and obtain an echo as patient does have some complaints of orthopnea, severe hypertension. We will continue to monitor patient's vital signs q.4 hours or more often if needed. Continue home medications, p.r.n. antihypertensives may be available if needed. Chronic kidney disease, continue to monitor. SCDs ordered for VTE prophylaxis. The patient wishes to be a full code. He did not wish to list the surrogate decision maker at this time. The patient has been discussed with Dr. Jack. Job ID: [id number] [facility]
[2020-09-09] MEDS ORDERED: Aspirin 325 MG TAB ONE (07:27)
[2020-09-09] MEDS: Aspirin 325 mg Enteric Coated Tablet PO SCH (07:30)
[2020-09-09 07:52] LABS: Cardiac Risk 3.1 (Less than 4.5)
[2020-09-09 12:44] LABS: SARS-CoV-2 MS2 Positive; SARS-CoV-2 N Gene Negative; SARS-CoV-2 S Gene Negative; SARS-CoV-2 by NAA Not Detected (NotDetected); SARS-CoV-2 orf1ab Negative
[2020-09-09] MEDS ORDERED: hydrALAZINE 25 MG TAB PO PRN (14:20)
[2020-09-09] MEDS: Labetalol HCl 100 MG/20 ML VIAL SLOW IVP PRN ×2 (14:35→18:16)
[2020-09-09 15:32] VITALS: BMI 43.4
[2020-09-09] MEDS: Nicotine 21 MG PATCH TOP SCH (16:38)
[2020-09-09] MEDS: Acetaminophen 500 MG TAB PO PRN ×2 (16:43→21:43)
--- NOTE | 2020-09-09 18:55 | CON ---
DATE OF CONSULTATION: HISTORY OF PRESENT ILLNESS: The patient is a 45-year-old gentleman who presents with headaches and chest discomfort. The patient has a previous history of cerebrovascular accident. He also states that he previously underwent a PTCA and stent placement. The patient was admitted in January 2019 with unstable angina. He subsequently underwent a cardiac catheterization. He was found to have normal left ventricular systolic function with normal coronary arteries. The patient was placed on hypertensive medications. The patient was discontinued these medications several months ago. He was started having increasing headaches. The patient presented to the emergency room with severe headaches and substernal chest discomfort. He was noted to be markedly hypertensive. The patient denies having any present chest discomfort. PAST MEDICAL HISTORY: 1. Malignant hypertension. 2. Possible PTCA stent placement. 3. Hypertension. 4. Dyslipidemia. 5. Bipolar disorder. 6. Seizure disorder. PAST SURGICAL HISTORY: None. SOCIAL HISTORY: Long history of tobacco abuse. ALLERGIES: NO KNOWN DRUG ALLERGIES. FAMILY HISTORY: No strong family history of heart disease. MEDICATIONS ON ADMISSION: None. SOCIAL HISTORY: Smokes one pack per day. PHYSICAL EXAMINATION: GENERAL AND VITAL SIGNS: Middle-aged gentleman who is markedly hypertensive with a blood pressure of 171/112. NECK: No jugular venous distention. LUNGS: Clear to auscultation. HEART: Regular rate and rhythm. Normal S1, S2. No murmurs. ABDOMEN: Nondistended. EXTREMITIES: Showed no edema. VASCULAR: Radial pulses are 2+. LABORATORY DATA: Sodium 143, potassium 3.9, chloride 108, bicarb 24, BUN 11, creatinine 1.45, glucose 104. White blood cell count 8.8, hemoglobin 15.8, hematocrit 47.4, and platelets 174. His EKG revealed normal sinus rhythm with ST elevation suggestive of early repolarization with nonspecific T-wave abnormality. IMPRESSION: 1. Malignant hypertension. 2. Chest pain. 3. History of normal coronary arteries. 4. History of cerebrovascular accident. 5. Bipolar disorder. 6. Seizure disorder. 7. Dyslipidemia. 8. Tobacco abuse. This gentleman presents with malignant hypertension. This was associated with chest pain and headaches. From a cardiac standpoint, the patient will be restarted on clonidine and Norvasc. He will also be treated with aspirin and lipid-lowering medications. The life threatening consequences of this gentleman being noncompliant with his medications and continued tobacco abuse have explained to him. PLAN: 1. Restart clonidine and Norvasc. 2. Start aspirin therapy. 3. Restart Lipitor. Job ID: [id number] [facility]
[2020-09-09] MEDS: Atorvastatin Calcium 40 MG TAB PO SCH (21:36)
[2020-09-09] MEDS: Amlodipine 5 MG TAB PO SCH (21:36)
[2020-09-09] MEDS: Clopidogrel Bisulfate 75 MG TAB PO SCH (21:36)
[2020-09-09] MEDS: cloNIDine 0.1 MG TAB PO SCH (21:36)
[2020-09-09] MEDS: Hydrochlorothiazide 25 MG TAB PO SCH (21:36)
[2020-09-09] MEDS: levETIRAcetam 500 MG TAB PO SCH (21:37)
[2020-09-10] MEDS: Acetaminophen 500 MG TAB PO PRN ×3 (04:38→22:00)
[2020-09-10] MEDS ORDERED: FLU VACC QS2020-21(6MOS UP)/PF 60 MCG/0.5 ML SYRINGE IM ONE (09:00)
[2020-09-10] MEDS ORDERED: NIFEdipine XL 60 MG TAB PO SCH (09:15)
[2020-09-10] MEDS ORDERED: cloNIDine 0.1 MG TAB PO SCH (09:15)
[2020-09-10] MEDS: Amlodipine 5 MG TAB PO SCH (09:40)
[2020-09-10] MEDS: cloNIDine 0.1 MG TAB PO SCH ×2 (09:41→21:57)
[2020-09-10] MEDS: Hydrochlorothiazide 25 MG TAB PO SCH ×2 (09:51→21:58)
[2020-09-10] MEDS: Aspirin 325 mg Enteric Coated Tablet PO SCH (09:51)
[2020-09-10] MEDS: levETIRAcetam 500 MG TAB PO SCH ×2 (09:53→21:57)
[2020-09-10] MEDS: hydrALAZINE 25 MG TAB PO SCH ×2 (09:53→21:57)
[2020-09-10] MEDS: Clopidogrel Bisulfate 75 MG TAB PO SCH ×2 (09:53→21:57)
--- NOTE | 2020-09-10 17:03 | PDOC.HOSPP ---
- Subjective Encounter Date: 09/10/20 Encounter Time: 11:15 Subjective: pt up in bed no complains - Objective Vital Signs & Weight: Vital Signs (12 hours) Temp Pulse Resp BP BP Pulse Ox 09/10/20 15:40 73 138/103 H 09/10/20 13:51 151/99 H 09/10/20 13:20 97.7 F 80 18 151/95 H 97 09/10/20 11:52 89 149/101 H 09/10/20 08:00 97.7 F 81 16 159/119 H 98 Weight Weight 180 lb I&O: 09/09/20 09/10/20 09/11/20 06:59 06:59 06:59 Intake Total 1320 Balance 1320 Result Diagrams: 09/08/20 20:31 09/08/20 20:31 Hospitalist ROS - Review of Systems Cardiovascular: denies: chest pain, palpitations, orthopnea, paroxysmal noc. dyspnea, edema, light headedness, other Gastrointestinal: denies: nausea, vomiting, abdominal pain, diarrhea, constipation, melena, hematochezia, other Genitourinary: denies: dysuria, frequency, incontinence, hematuria, retention, other - Medication Medications: Active Medications Generic Name Dose Route Start Last Admin Trade Name Freq PRN Reason Stop Dose Admin Acetaminophen 1,000 mg 09/09/20 02:16 09/10/20 10:40 Acetaminophen 500 Mg Tab PO 1,000 mg Q6H PRN Administration Mild Pain (1-3) Aspirin 325 mg 09/09/20 09:00 09/10/20 09:51 Aspirin 325 Mg Enteric Coated Tablet PO 325 mg DAILY NIKOLE Administration Atorvastatin Calcium 40 mg 09/09/20 21:00 09/09/20 21:36 Atorvastatin Calcium 40 Mg Tab PO 40 mg HS NIKOLE Administration Clopidogrel Bisulfate 75 mg 09/09/20 21:00 09/10/20 09:53 Clopidogrel Bisulfate 75 Mg Tab PO 75 mg BID NIKOLE Administration Hydralazine HCl 10 mg 09/09/20 02:16 09/09/20 16:13 Hydralazine 20 Mg/Ml Vial SLOW IVP 10 mg Q4H PRN Administration SBP > 180 and HR < 70 Hydralazine HCl 25 mg 09/10/20 09:00 09/10/20 09:53 Hydralazine 25 Mg Tab PO 25 mg BID NIKOLE Administration Hydrochlorothiazide 12.5 mg 09/09/20 21:00 09/10/20 09:51 Hydrochlorothiazide 25 Mg Tab PO 12.5 mg BID NIKOLE Administration Labetalol HCl 20 mg 09/09/20 02:16 09/09/20 18:16 Labetalol Hcl 100 Mg/20 Ml Vial SLOW IVP 20 mg Q4H PRN Administration SBP > 180 and HR >/= 70 Levetiracetam 250 mg 09/09/20 21:00 09/10/20 09:53 Levetiracetam 500 Mg Tab PO 250 mg BID NIKOLE Administration Nicotine 21 mg 09/09/20 16:15 09/09/20 16:38 Nicotine 21 Mg Patch TOP 21 mg Q24H NIKOLE Administration - Exam Neck: negative: supple, symmetric, no JVD, no thyromegaly, no lymphadenopathy, no carotid bruit, JVD Heart: negative: RRR, no murmur, no gallops, no rubs, normal peripheral pulses, irregular, diminshed peripheral pulses, murmur present, II/IV, III/IV Respiratory: negative: CTAB, no wheezes, no rales, no ronchi, normal chest expansion, no tachypnea, normal percussion, rales, rhonchi, tachypneic, wheezes Gastrointestinal: negative: soft, non-tender, non-distended, normal bowel sounds, no palpable masses, no hepatomegaly, no splenomegaly, no bruit, no guarding, no rigidity, tender to palpation, distended, diminished bowl sounds, voluntary guarding Hosp A/P (1) Atypical chest pain Code(s): R07.89 - OTHER CHEST PAIN Status: Acute (2) Dyslipidemia Code(s): E78.5 - HYPERLIPIDEMIA, UNSPECIFIED Status: Acute (3) Hypertension Code(s): I10 - ESSENTIAL (PRIMARY) HYPERTENSION Status: Acute (4) Tobacco abuse Code(s): Z72.0 - TOBACCO USE Status: Acute - Plan We will titrate patient's blood pressure medications. Cardiology wants to keep the patient overnight for better titration of his blood pressure. Echocardiogram ordered. EF is 55 to 60% with apical hypertrophic cardiomyopathy.
[2020-09-10] MEDS: Nicotine 21 MG PATCH TOP SCH (17:12)
[2020-09-10] MEDS: Atorvastatin Calcium 40 MG TAB PO SCH (21:57)
[2020-09-11] MEDS: Acetaminophen 500 MG TAB PO PRN (05:23)
[2020-09-11] MEDS: cloNIDine 0.1 MG TAB PO SCH (08:11)
[2020-09-11] MEDS: Clopidogrel Bisulfate 75 MG TAB PO SCH (08:11)
[2020-09-11] MEDS: Aspirin 325 mg Enteric Coated Tablet PO SCH (08:11)
[2020-09-11] MEDS: Hydrochlorothiazide 25 MG TAB PO SCH (08:12)
[2020-09-11] MEDS: levETIRAcetam 500 MG TAB PO SCH (08:12)
[2020-09-11] MEDS ORDERED: NIFEdipine XL 60 MG TAB PO SCH (09:00)
[2020-09-11 12:01] VITALS: BP 100/68; TEMP 98.5
--- NOTE | 2020-09-12 04:11 | DIS ---
DATE OF ADMISSION: 09/08/2020 DATE OF DISCHARGE: 09/11/2020 DISCHARGE DIAGNOSES: 1. Atypical chest pain. 2. Dyslipidemia. 3. Hypertension. 4. Tobacco abuse. 5. Headache. HOSPITAL COURSE: Patient is a 45-year-old male, who initially presented to the hospital with chest pain and headache. He was noted to be significantly hypertensive in the ER. Patient's medications were titrated. He was noncompliant with his medications, had not been taking his medications for some time. He was seen by Cardiology, underwent an echocardiogram which indicated an EF of 55% to 60% with apical hypertrophic cardiomyopathy. Significant emphases were made to the patient in regard to follow up and also one month prescription was provided to the patient. Patient has been encouraged to not stop taking his medications. His brain CT was negative for any acute abnormalities. Patient will be discharged home. HOME MEDICATIONS: Will be: 1. Clonidine 0.2 b.i.d. 2. Keppra 250 mg twice a day. 3. Nifedipine 60 mg daily. 4. Hydrochlorothiazide 12.5 twice a day. 5. Clopidogrel 75 mg daily. 6. Atorvastatin 40 mg at bedtime. 7. Aspirin 81 mg daily. Again, he will be discharged home. Follow up with Primary which I have provided the number. PHYSICAL EXAMINATION: VITAL SIGNS: His vital signs on discharge; temperature 98.5, 77, 18, 98% on room air, and blood pressure 100/68. GENERAL: He is awake, alert, and oriented x3. Does not appear in distress. CV: S1, S2 present. No murmurs, rubs, or gallops. Job ID: [id number]
== END 2020-09-11 12:46 | disposition home or self-care (01) ==
LOC: ERS 20:08 → 2SE 22:14 → ERHOLD 22:22 → 2SE 09-09 13:21
PROVIDERS: ADMIT Internal Medicine; ATTEND Internal Medicine
DX: R07.89 Other chest pain (principal); R51.9 Headache, unspecified; E78.5 Hyperlipidemia, unspecified; I12.9 Hypertensive chronic kidney disease with stage 1 through stage 4 chronic kidney disease, or unspecified chronic kidney disease; N18.9 Chronic kidney disease, unspecified; F17.210 Nicotine dependence, cigarettes, uncomplicated; I25.2 Old myocardial infarction; J45.909 Unspecified asthma, uncomplicated; F41.9 Anxiety disorder, unspecified; F31.9 Bipolar disorder, unspecified; F20.9 Schizophrenia, unspecified; G40.909 Epilepsy, unspecified, not intractable, without status epilepticus; I69.351 Hemiplegia and hemiparesis following cerebral infarction affecting right dominant side; Z91.14 Patient's other noncompliance with medication regimen; Z79.899 Other long term (current) drug therapy; Z95.5 Presence of coronary angioplasty implant and graft; Z20.828 Contact with and (suspected) exposure to other viral communicable diseases
CPT/HCPCS: 36415; 70450; 71046; 80053; 80061; 84484; 85025; 87635; 90471; 90662; 90732; 93005; 93306; 94760; 96365; 96366; 96375; G0008; G0009; G0378; J0360; J1200; J2765; U0003

== ENCOUNTER 2020-10-19 22:27 | Emergency (ER) | payer OTHER ==
[2020-10-19 23:00] LABS: #Basophils 0.2 thou/uL (0.0-0.2); #Eosinphils 0.1 thou/uL (0.0-0.7); #Lymphocytes 2.1 thou/uL (1.20-3.40); #Monocytes 0.8 thou/uL (0.11-0.59); #Neutrophils 8.3 thou/uL (1.40-6.50); %Basophils 1.3 % (0.0-1.0); %Eosinophils 0.5 % (0.0-10.0); %Lymphocytes 18.6 % (21.0-51.0); %Monocytes 7.1 % (0.0-10.0); %Neutrophils 72.5 % (42.0-75.0); Hemoglobin 15.7 g/dL (14.0-18.0); Mean Corpuscular HGB CONC 33.4 g/dL (32.0-36.0); Mean Corpuscular Hemoglobin 28.8 pg (27.0-31.0); Mean Corpuscular Volume 86.2 fL (78.0-98.0); Mean Platelet Volume 8.8 fL (7.4-10.4); Platelet Count 167 thou/uL (130-400); RBC Distribution Width 12.9 % (11.5-14.5); Red Blood Cell (RBC) Count 5.44 mill/uL (4.70-6.10); White Blood Cell (WBC) Count 11.4 thou/uL (4.8-10.8)
[2020-10-19 23:16] LABS: ALT (SGPT) 13 U/L (8-55); AST (SGOT) 16 U/L (5-34); Albumin 4.4 g/dL (3.5-5.0); Alkaline Phosphatase 67 U/L (40-110); Anion Gap 16 mmol/L (10-20); BUN (Urea Nitrogen) 8 mg/dL (8.9-20.6); Bilirubin, Total 0.4 mg/dL (0.2-1.2); Calc. Creatinine Clearance 0 mL/min (70-130); Calcium 8.8 mg/dL (7.8-10.44); Carbon Dioxide 22 mmol/L (22-29); Chloride 106 mmol/L (98-107); Globulin 2.6 g/dL (2.4-3.5); Glucose 96 mg/dL (70-105); Potassium 3.7 mmol/L (3.5-5.1); Sodium 140 mmol/L (136-145)
--- NOTE | 2020-10-19 23:42 | RAD ---
EXAM: CHEST ONE VIEW HISTORY: Headache and dizziness. Chest pain and shortness of breath. Elevated blood pressure. COMPARISON: 01/11/2020 FINDINGS: The cardiac silhouette and pulmonary vasculature are within normal limits. The lungs are clear. The o sseous structures are intact. No interval change from prior study. IMPRESSION: No acute cardiopulmonary process.
== END 2020-10-20 00:14 | disposition left against medical advice (07) ==
LOC: ERS 22:27
DX: R42 Dizziness and giddiness (principal); R07.9 Chest pain, unspecified; I10 Essential (primary) hypertension; I25.2 Old myocardial infarction; J45.909 Unspecified asthma, uncomplicated; F17.210 Nicotine dependence, cigarettes, uncomplicated; Z79.899 Other long term (current) drug therapy
CPT/HCPCS: 36415; 71045; 80053; 84484; 85025; 93005

== ENCOUNTER 2020-11-14 22:29 | Emergency (ER) | payer OTHER ==
[2020-11-14] MEDS ORDERED: Ketorolac Tromethamine 30 MG/ML VIAL ONE (22:58)
== END 2020-11-14 23:14 | disposition home or self-care (01) ==
LOC: ERS 22:29
DX: K02.9 Dental caries, unspecified (principal); F17.210 Nicotine dependence, cigarettes, uncomplicated
CPT/HCPCS: 96372; 99282; J1885

== ENCOUNTER 2021-08-21 15:53 | Observation (INO) | payer OTHER ==
[~2021-08-21 15:53] MED LIST changes: -ISOVUE-370 76%-LOCM 1 ML ONE; +Iopamidol-370 76% 500 ML 1 ML ONE
[2021-08-21 16:45] LABS: #Basophils 0.1 thou/uL (0.0-0.2); #Eosinphils 0.1 thou/uL (0.0-0.7); #Lymphocytes 1.9 thou/uL (1.20-3.40); #Monocytes 0.8 thou/uL (0.11-0.59); #Neutrophils 6.9 thou/uL (1.40-6.50); %Basophils 0.8 % (0.0-1.0); %Eosinophils 0.6 % (0.0-10.0); %Lymphocytes 19.9 % (21.0-51.0); %Neutrophils 70.7 % (42.0-75.0); Hemoglobin 15.6 g/dL (14.0-18.0); Mean Corpuscular HGB CONC 33.2 g/dL (32.0-36.0); Mean Corpuscular Volume 87.3 fL (78.0-98.0); Mean Platelet Volume 9.3 fL (7.4-10.4); Platelet Count 158 thou/uL (130-400); RBC Distribution Width 12.8 % (11.5-14.5); Red Blood Cell (RBC) Count 5.38 mill/uL (4.70-6.10); White Blood Cell (WBC) Count 9.7 thou/uL (4.8-10.8)
[2021-08-21 17:13] LABS: ALT (SGPT) 14 U/L (8-55); AST (SGOT) 18 U/L (5-34); Albumin 4.6 g/dL (3.5-5.0); Alkaline Phosphatase 74 U/L (40-110); Anion Gap 13 mmol/L (10-20); BUN (Urea Nitrogen) 17 mg/dL (8.9-20.6); Bilirubin, Total 0.4 mg/dL (0.2-1.2); Calc. Creatinine Clearance 0 mL/min (70-130); Calcium 9.5 mg/dL (7.8-10.44); Carbon Dioxide 25 mmol/L (22-29); Chloride 103 mmol/L (98-107); Globulin 2.9 g/dL (2.4-3.5); Glucose 78 mg/dL (70-105); Potassium 3.9 mmol/L (3.5-5.1); Protein, Total 7.5 g/dL (6.0-8.3); Sodium 137 mmol/L (136-145)
[2021-08-21] MEDS ORDERED: Nitroglycerin 2% Ointment 1 INCH/1 GM Packet ONE (18:04)
[2021-08-21] MEDS ORDERED: Aspirin Chewable 81 MG TAB ONE (18:13)
[2021-08-21 20:22] LABS: Troponin I Less than 0.010 ng/mL (< 0.028)
[2021-08-21] MEDS ORDERED: Ondansetron PF 4 MG/2 ML Vial IVP PRN (20:30)
[2021-08-21] MEDS ORDERED: Ondansetron ODT 4 MG TAB SL PRN (20:30)
[2021-08-21] MEDS ORDERED: Acetaminophen 325 MG TAB PO PRN (20:30)
[2021-08-21] MEDS ORDERED: Nitroglycerin 0.4 MG TAB (25 Tab Bottle) SL PRN (21:24)
[2021-08-21] MEDS: Sodium Chloride 0.9% 1,000 ML IV SCH (21:31)
[2021-08-21] MEDS ORDERED: hydrALAZINE 20 MG/ML VIAL SLOW IVP PRN (21:31)
[2021-08-21 21:51] VITALS: BMI 24.7
[2021-08-21] MEDS: cloNIDine 0.2 MG TAB PO SCH (22:34)
[2021-08-22 00:05] LABS: Troponin I Less than 0.010 ng/mL (< 0.028)
[2021-08-22 04:39] LABS: #Eosinphils 0.1 thou/uL (0.0-0.7); #Lymphocytes 2.3 thou/uL (1.20-3.40); #Monocytes 0.7 thou/uL (0.11-0.59); #Neutrophils 4.4 thou/uL (1.40-6.50); %Basophils 0.6 % (0.0-1.0); %Eosinophils 1.1 % (0.0-10.0); %Monocytes 8.9 % (0.0-10.0); %Neutrophils 58.4 % (42.0-75.0); Hemoglobin 13.8 g/dL (14.0-18.0); Mean Corpuscular Hemoglobin 29.1 pg (27.0-31.0); Mean Platelet Volume 9.5 fL (7.4-10.4); Platelet Count 143 thou/uL (130-400); RBC Distribution Width 12.6 % (11.5-14.5); Red Blood Cell (RBC) Count 4.75 mill/uL (4.70-6.10); White Blood Cell (WBC) Count 7.5 thou/uL (4.8-10.8)
[2021-08-22 05:02] LABS: Anion Gap 12 mmol/L (10-20); BUN (Urea Nitrogen) 19 mg/dL (8.9-20.6); Calc. Creatinine Clearance 69 mL/min (70-130); Calcium 8.7 mg/dL (7.8-10.44); Carbon Dioxide 25 mmol/L (22-29); Cardiac Risk 2.9 (Less than 4.5); Chloride 106 mmol/L (98-107); Cholesterol 141 mg/dl (< 200 Desired); Glucose 100 mg/dL (70-105); HDL Cholesterol 49 mg/dL (>60 Neg Risk); LDL Cholesterol, Calculated 72 mg/dL; Potassium 3.9 mmol/L (3.5-5.1); Sodium 139 mmol/L (136-145); Triglycerides 102 mg/dL (Less than 150)
[2021-08-22] MEDS: Sodium Chloride 0.9% 1,000 ML IV SCH (05:37)
[2021-08-22] MEDS ORDERED: Amlodipine 5 MG TAB PO SCH (09:00)
[2021-08-22] MEDS: Hydrochlorothiazide 25 MG TAB PO SCH ×2 (09:58→21:24)
[2021-08-22] MEDS: cloNIDine 0.2 MG TAB PO SCH ×2 (09:58→21:24)
[2021-08-22] MEDS: Aspirin 81 mg Enteric Coated Tablet PO SCH (09:58)
[2021-08-22] MEDS: levETIRAcetam 500 mg/5 ml Oral Solution PO SCH ×2 (09:58→21:23)
[2021-08-22] MEDS: Clopidogrel Bisulfate 75 MG TAB PO SCH (09:58)
[2021-08-22 12:09] LABS: SARS-CoV-2 PCR by NAA Not Detected (NotDetected)
[2021-08-22] MEDS ORDERED: Acetaminophen 325 MG TAB PO PRN (19:54)
[2021-08-22] MEDS ORDERED: Atorvastatin Calcium 40 MG TAB PO SCH (21:00)
[2021-08-23] MEDS ORDERED: NIFEdipine XL 60 MG TAB PO SCH (09:00)
[2021-08-23] MEDS: Aspirin 81 mg Enteric Coated Tablet PO SCH (09:26)
[2021-08-23] MEDS: Hydrochlorothiazide 25 MG TAB PO SCH (09:26)
[2021-08-23] MEDS: levETIRAcetam 500 mg/5 ml Oral Solution PO SCH (09:26)
[2021-08-23] MEDS: Clopidogrel Bisulfate 75 MG TAB PO SCH (09:26)
[2021-08-23] MEDS: cloNIDine 0.2 MG TAB PO SCH (09:26)
[2021-08-23 11:10] VITALS: BP 142/88; TEMP 97.6
== END 2021-08-23 12:59 | disposition home or self-care (01) ==
LOC: ERS 15:53 → 2NO 18:44
PROVIDERS: ADMIT Internal Medicine; ATTEND Internal Medicine
DX: I16.0 Hypertensive urgency (principal); R07.89 Other chest pain; R51.9 Headache, unspecified; I11.9 Hypertensive heart disease without heart failure; F31.9 Bipolar disorder, unspecified; I69.392 Facial weakness following cerebral infarction; I69.354 Hemiplegia and hemiparesis following cerebral infarction affecting left non-dominant side; F17.210 Nicotine dependence, cigarettes, uncomplicated; E78.5 Hyperlipidemia, unspecified; G40.909 Epilepsy, unspecified, not intractable, without status epilepticus; I25.2 Old myocardial infarction; F12.10 Cannabis abuse, uncomplicated; N52.2 Drug-induced erectile dysfunction; T50.905A Adverse effect of unspecified drugs, medicaments and biological substances, initial encounter; J32.3 Chronic sphenoidal sinusitis; I37.1 Nonrheumatic pulmonary valve insufficiency; I42.2 Other hypertrophic cardiomyopathy; F20.9 Schizophrenia, unspecified; R41.82 Altered mental status, unspecified; Z91.14 Patient's other noncompliance with medication regimen; Z79.02 Long term (current) use of antithrombotics/antiplatelets; Z79.82 Long term (current) use of aspirin; Z79.899 Other long term (current) drug therapy; Z20.822 Contact with and (suspected) exposure to COVID-19
CPT/HCPCS: 36415; 36416; 70450; 70551; 71045; 71275; 74174; 80048; 80053; 80061; 84484; 85025; 93005; 93306; 94760; G0378; J7050; Q9967; U0003; U0005

== ENCOUNTER 2021-11-17 19:17 | Emergency (ER) | payer OTHER ==
[2021-11-17] MEDS ORDERED: Acetaminophen 500 MG TAB ONE (19:49)
[2021-11-17] MEDS ORDERED: PROVENTIL INHALER 6.7 G (200 INHALATIONS) ONE (19:49)
[2021-11-17] MEDS ORDERED: Albuterol 200 PUFF (6.7GM INHALER) ONE ×2 (19:51→19:57)
[2021-11-17 19:58] LABS: #Lymphocytes 0.5 thou/uL (1.20-3.40); #Monocytes 0.7 thou/uL (0.11-0.59); #Neutrophils 4.9 thou/uL (1.40-6.50); %Basophils 0.3 % (0.0-1.0); %Eosinophils 0.3 % (0.0-10.0); %Lymphocytes 8.7 % (21.0-51.0); %Monocytes 10.9 % (0.0-10.0); %Neutrophils 79.7 % (42.0-75.0); Hemoglobin 13.7 g/dL (14.0-18.0); Mean Corpuscular HGB CONC 31.5 g/dL (32.0-36.0); Mean Corpuscular Hemoglobin 27.9 pg (27.0-31.0); Mean Corpuscular Volume 88.3 fL (78.0-98.0); Mean Platelet Volume 9.3 fL (7.4-10.4); Platelet Count 136 thou/uL (130-400); RBC Distribution Width 12.8 % (11.5-14.5); Red Blood Cell (RBC) Count 4.93 mill/uL (4.70-6.10); White Blood Cell (WBC) Count 6.2 thou/uL (4.8-10.8)
[2021-11-17 20:15] LABS: ALT (SGPT) 15 U/L (8-55); AST (SGOT) 17 U/L (5-34); Albumin 3.8 g/dL (3.5-5.0); Alkaline Phosphatase 55 U/L (40-110); Anion Gap 15 mmol/L (10-20); BUN (Urea Nitrogen) 10 mg/dL (8.9-20.6); Bilirubin, Total 0.3 mg/dL (0.2-1.2); Calc. Creatinine Clearance 0 mL/min (70-130); Calcium 8.4 mg/dL (7.8-10.44); Carbon Dioxide 23 mmol/L (22-29); Chloride 104 mmol/L (98-107); Globulin 2.7 g/dL (2.4-3.5); Glucose 88 mg/dL (70-105); Magnesium 1.8 mg/dL (1.6-2.6); Potassium 3.7 mmol/L (3.5-5.1); Protein, Total 6.5 g/dL (6.0-8.3); Sodium 138 mmol/L (136-145)
[2021-11-17 22:04] LABS: SARS-CoV-2 NAA Rapid Test DETECTED (NotDetected)
== END 2021-11-17 21:25 | disposition home or self-care (01) ==
LOC: ERS 19:17
DX: U07.1 COVID-19 (principal); J45.909 Unspecified asthma, uncomplicated; F17.210 Nicotine dependence, cigarettes, uncomplicated; Z79.899 Other long term (current) drug therapy; Z79.82 Long term (current) use of aspirin
CPT/HCPCS: 0240U; 36415; 71045; 80053; 83735; 83880; 84484; 85025; 93005; 94664

== ENCOUNTER 2023-01-12 11:15 | Emergency (ER) | payer OTHER ==
[2023-01-12] MEDS ORDERED: Fluorescein Opthalmic Strip ONE (12:47)
[2023-01-12] MEDS ORDERED: Proparacaine 0.5% Opth 15 ML BOT ONE ×2 (12:48→14:58)
== END 2023-01-12 15:55 | disposition home or self-care (01) ==
LOC: ERS 11:15
DX: H57.12 Ocular pain, left eye (principal); I10 Essential (primary) hypertension; F17.210 Nicotine dependence, cigarettes, uncomplicated; Z79.82 Long term (current) use of aspirin; Z79.899 Other long term (current) drug therapy
CPT/HCPCS: 99283

== ENCOUNTER 2023-01-16 13:29 | Emergency (ER) | payer OTHER ==
[2023-01-16] MEDS ORDERED: Boostrix 0.5 ML (Tdap) VIAL (>/=7 yrs of age) ONE (15:11)
[2023-01-16] MEDS ORDERED: Ketorolac Tromethamine 30 MG/ML VIAL ONE (15:11)
== END 2023-01-16 15:45 | disposition home or self-care (01) ==
LOC: ERS 13:29
DX: S61.511A Laceration without foreign body of right wrist, initial encounter (principal); I10 Essential (primary) hypertension; F17.210 Nicotine dependence, cigarettes, uncomplicated; W22.8XXA Striking against or struck by other objects, initial encounter; Z79.82 Long term (current) use of aspirin
CPT/HCPCS: 90471; 90715; 96372; J1885

== ENCOUNTER 2024-12-29 09:30 | Observation (INO) | payer OTHER ==
[2024-12-29] MEDS ORDERED: Iopamidol-370 76% 500 ML MDV (1 ML CHARGE) ONE (11:08)
[2024-12-29 11:11] LABS: Bacteria/HPF None Seen HPF (None Seen); Bilirubin Negative (Negative); Blood, Urine 1+ (Negative); CAUTI Indications for Culture Pelvic or flank pain; Clarity Clear (Clear); Glucose, Urine (Dipstick) 30 mg/dL (Negative); Ketone, Urine Trace mg/dL (Negative); Leukocyte Negative Leu/uL (Negative); Nitrite Negative (Negative); Protein, Urine (Dipstick) 100 mg/dL (Neg-Trace); RBC/HPF 0-3 HPF (0-3); Specific Gravity, Urine 1.035 (1.002-1.036); Squamous Epithelial 0-3 HPF (0-3); Urobilinogen Normal mg/dL (Less than 2); WBC/HPF 0-3 HPF (0-3); pH, Urine 5.5 (5.0-9.0)
[2024-12-29 11:13] LABS: ALT (SGPT) 17 U/L (Less than 45); AST (SGOT) 43 U/L (11-34); Albumin 3.8 g/dL (3.1-4.5); Alkaline Phosphatase 58 U/L (40-110); Anion Gap 14 mmol/L (10-20); BUN (Urea Nitrogen) 10 mg/dL (8.9-20.6); Bilirubin, Total 0.5 mg/dL (0.3-1.2); Calc. Creatinine Clearance 0 mL/min (70-130); Calcium 8.6 mg/dL (7.8-10.44); Carbon Dioxide 22 mmol/L (22-29); Chloride 106 mmol/L (98-107); Estimated GFR 70; Globulin 3.7 g/dL (2.4-3.5); Glucose 101 mg/dL (70-105); Lipase 16 U/L (8-78); Potassium 3.3 mmol/L (3.5-5.1); Protein, Total 7.5 g/dL (6.0-8.3); Sodium 139 mmol/L (136-145)
[2024-12-29 11:16] LABS: Troponin I 0.031 ng/mL (< 0.028)
[2024-12-29 11:19] LABS: #Basophils 0.04 10x3/uL (0.0-0.2); %Basophils 0.4 % (0.0-1.0); %Eosinophils 0.7 % (0.0-10.0); %Lymphocytes 7.7 % (21.0-51.0); %Monocytes 8.4 % (0.0-10.0); %Neutrophils 82.5 % (42.0-75.0); Hematocrit 43.2 % (42.0-52.0); Hemoglobin 14.3 g/dL (14.0-18.0); Mean Corpuscular HGB CONC 33.1 g/dL (32.0-36.0); Mean Corpuscular Hemoglobin 27.1 pg (27.0-31.0); Mean Corpuscular Volume 81.8 fL (78.0-98.0); Platelet Count 129 10x3/uL (130-400); RBC Distribution Width 13.6 % (11.5-14.5); Red Blood Cell (RBC) Count 5.28 mill/uL (4.70-6.10)
[2024-12-29 11:20] LABS: Platelet Adequacy Comment Platelets Decreased; Polychromasia SLIGHT = 2-3 cells HPF (0-2)
[2024-12-29 11:22] LABS: Urine Culture Reflex No No
[2024-12-29] MEDS ORDERED: Pantoprazole 40 MG VIAL ONE (14:28)
[2024-12-29] MEDS ORDERED: cefTRIAXone (ROCEPHIN) 2 GM VIAL ONE (14:28)
[2024-12-29] MEDS ORDERED: Sodium Chloride 0.9% 100 ML ONE (14:29)
[2024-12-29] MEDS ORDERED: Azithromycin 500 MG VIAL ONE (14:29)
[2024-12-29] MEDS ORDERED: Calcium Carbonate 500 MG ChewTAB PO PRN (14:59)
[2024-12-29] MEDS ORDERED: Senokot S 8.6-50 MG TAB PO PRN (14:59)
[2024-12-29 17:19] VITALS: BMI 26.1
[2024-12-29] MEDS: Potassium Chloride 20 MEQ TAB PO SCH (17:20)
[2024-12-29] MEDS: Ondansetron PF 4 MG/2 ML Vial IVP SCH (17:20)
[2024-12-29] MEDS: Labetalol HCl 100 MG/20 ML VIAL SLOW IVP SCH (17:21)
[2024-12-29] MEDS: Sodium Chloride 0.9% 1,000 ML IV SCH (17:45)
[2024-12-29 18:25] LABS: Troponin I 0.024 ng/mL (< 0.028)
[2024-12-29] MEDS ORDERED: Albuterol 200 PUFF (6.7GM INHALER) ONE (19:55)
[2024-12-29] MEDS ORDERED: Ibuprofen 100 MG/5 ML UDCUP ONE (19:55)
[2024-12-29] MEDS ORDERED: Dexamethasone 10 MG/ML VIAL ONE (19:55)
[2024-12-29] MEDS: Acetaminophen 325 MG TAB PO PRN (20:18)
[2024-12-29] MEDS: cloNIDine 0.2 MG TAB PO SCH (20:18)
[2024-12-29] MEDS: Atorvastatin Calcium 40 MG TAB PO SCH (20:18)
[2024-12-29] MEDS: levETIRAcetam 500 MG TAB PO SCH (20:19)
[2024-12-29] MEDS: Pantoprazole 40 MG VIAL IVP SCH (20:19)
[2024-12-30 03:54] LABS: Strep pneumo Urine Ag NEGATIVE (NEGATIVE)
[2024-12-30 04:02] LABS: #Basophils 0.04 10x3/uL (0.0-0.2); %Basophils 0.5 % (0.0-1.0); %Eosinophils 3.3 % (0.0-10.0); %Lymphocytes 20.7 % (21.0-51.0); %Neutrophils 62.2 % (42.0-75.0); Hemoglobin 12.7 g/dL (14.0-18.0); Mean Corpuscular HGB CONC 31.8 g/dL (32.0-36.0); Mean Corpuscular Volume 84.9 fL (78.0-98.0); Platelet Count 138 10x3/uL (130-400); RBC Distribution Width 13.8 % (11.5-14.5); Red Blood Cell (RBC) Count 4.71 mill/uL (4.70-6.10)
[2024-12-30 04:21] LABS: Anion Gap 12 mmol/L (10-20); BUN (Urea Nitrogen) 9 mg/dL (8.9-20.6); Calc. Creatinine Clearance 68 mL/min (70-130); Carbon Dioxide 25 mmol/L (22-29); Chloride 107 mmol/L (98-107); Potassium 3.2 mmol/L (3.5-5.1); Sodium 141 mmol/L (136-145)
[2024-12-30 04:22] LABS: ALT (SGPT) 15 U/L (Less than 45); AST (SGOT) 40 U/L (11-34); Albumin 3.3 g/dL (3.1-4.5); Alkaline Phosphatase 47 U/L (40-110); Bilirubin, Total 0.4 mg/dL (0.3-1.2); Calcium 8.2 mg/dL (7.8-10.44); Estimated GFR 68; Globulin 3.1 g/dL (2.4-3.5); Glucose 96 mg/dL (70-105); Protein, Total 6.4 g/dL (6.0-8.3)
[2024-12-30] MEDS: Albuterol 2.5 MG (3 mL) NEB NEB PRN (09:58)
[2024-12-30] MEDS ORDERED: Enoxaparin 40 MG (0.4 mL) SYRINGE SC SCH (10:00)
[2024-12-30 10:01] LABS: Legionella Urinary Ag Negative (Negative)
[2024-12-30] MEDS: Azithromycin 500 MG in Sodium Chloride 0.9% 250 ML 250 ML IVPB SCH (10:11)
[2024-12-30 11:16] VITALS: BP 164/97; TEMP 98.3
[2024-12-30] MEDS: NIFEdipine XL 60 MG ER.TAB PO SCH (11:32)
[2024-12-30] MEDS: cefTRIAXone\\ROCEPHIN 1 GM in Sodium Chloride 0.9% 100 ML IVPB SCH (13:15)
[2024-12-31] MEDS ORDERED: Enoxaparin 40 MG (0.4 mL) SYRINGE SC SCH (09:00)
== END 2024-12-30 14:00 | disposition home or self-care (01) ==
LOC: ERS 09:30 → ERHOLD 13:59 → 2NO 16:29
PROVIDERS: ADMIT Internal Medicine; ATTEND Hospitalist
DX: J18.9 Pneumonia, unspecified organism (principal); I12.9 Hypertensive chronic kidney disease with stage 1 through stage 4 chronic kidney disease, or unspecified chronic kidney disease; N18.9 Chronic kidney disease, unspecified; I5A Non-ischemic myocardial injury (non-traumatic); E78.5 Hyperlipidemia, unspecified; K21.9 Gastro-esophageal reflux disease without esophagitis; G40.909 Epilepsy, unspecified, not intractable, without status epilepticus; R79.89 Other specified abnormal findings of blood chemistry; Z79.82 Long term (current) use of aspirin; Z79.2 Long term (current) use of antibiotics; Z79.899 Other long term (current) drug therapy; F17.210 Nicotine dependence, cigarettes, uncomplicated
CPT/HCPCS: 36415; 71045; 71275; 74177; 80053; 81001; 83690; 83735; 84484; 85025; 85379; 86850; 86900; 86901; 87040; 87070; 87077; 87205; 87428; 87449; 87899; 93005; 94760; 96374; 96375; 96376; G0378; J0456; J0696; J1100; J2270; J2405; J2470; J7030; J7050; J7611; Q9967